=== PATIENT | male | born 1965 | race Caucasian/White ===

== ENCOUNTER → 2023-11-23 16:17 | Outpatient (BNVA) | payer MEDICAID, SELFPAY | PROVIDERS: Visit Provider Internal Medicine Cardiovascular Disease | DX: I49.8 Other specified cardiac arrhythmias (principal); R07.9 Chest pain, unspecified; R01.1 Cardiac murmur, unspecified; Z01.818 Encounter for other preprocedural examination; R00.2 Palpitations; Z87.891 Personal history of nicotine dependence | CPT/HCPCS: 93005; 99204 ==

== ENCOUNTER 2023-12-09 07:51 | Outpatient (CLI) | payer MEDICAID, SELFPAY ==
--- NOTE | 2023-12-09 08:00 | USCV_ITS ---
Cresencio Rubio Age: 57 Gender: M : 1965 Exam Date: 12/09/2023 08:17 Ordering Phys: Lorenzo Lorenzo MD ([email or web address]) Technologist: Exam Location: [facility] [place] Indication: Murmur BP: 119 / 79 HR: 50 Rhythm: Sinus Technical Quality: Adequate MEASUREMENTS (Male / Female) Normal Values 2D ECHO LVOT Diameter 2.3 cm LV Ejection Fraction MOD 4C 58.2 % LV Ejection Fraction MOD 2C 70.3 % LV Ejection Fraction 2C AL 70.7 % LA Diameter 4.3 cm RA Systolic Volume 4C AL 28.6 ml RA Systolic Volume 4C MOD 28.0 ml LA Sys Volume AL 58.8 cm cubed LA Sys Volume Index AL 29.0 cm cubed/m squared Aorta at Sinotubular Diameter 2.4 cm IVC Diameter 2.0 cm M-MODE LA Ao Ratio MM 1.7 AV Cusp Separation MM 2.3 cm DOPPLER AV Peak Velocity 136.0 cm/s LVOT Peak Velocity 106.0 cm/s AV Area Cont Eq vti 3.5 cm squared AV Area Cont Eq pk 3.1 cm squared MV Peak Velocity 117.0 cm/s MV Area PHT 2.9 cm squared Mitral E to A Ratio 0.9 TR Peak Velocity 238.0 cm/s TR Peak Gradient 22.7 mmHg TV Peak E Velocity 63.0 cm/s Right Atrial Pressure 3.0 mmHg Pulmonary Artery Systolic Pressu 25.7 mmHg PV Peak Velocity 116.5 cm/s FINDINGS Left Ventricle Normal left ventricular cavity size. Normal left ventricular systolic function. Left ventricular ejection fraction is estimated at 60 %. Grade I/IV diastolic dysfunction (abnormal relaxation filling pattern), normal to mildly elevated filling pressures. Right Ventricle The right ventricle is normal in size and function. Right Atrium Moderately increased right atrial size. Left Atrium Mildly increased left atrial size. Mitral Valve Moderately thickened mitral valve. There appeared to be mobile mass attached to mitral valve on the atrial side can be seen in different views cannot rule out vegetation in the absence of persistent infection and bacteremia could be rudimentary chordae, no mitral valve stenosis. Moderate mitral valve regurgitation. Aortic Valve Mild aortic valve calcification. No aortic valve stenosis. Trace aortic valve regurgitation. Tricuspid Valve Mild tricuspid valve regurgitation. Pulmonic Valve Structurally normal pulmonic valve without significant stenosis. There is no pulmonic regurgitation. Pericardium Normal pericardium without effusion. Aorta Normal ascending aorta dimension. IVC The inferior vena cava appears normal. CONCLUSIONS 1-Normal left ventricular cavity size. Normal left ventricular systolic function. Left ventricular ejection fraction is estimated at 60 %. Grade I/IV diastolic dysfunction (abnormal relaxation filling pattern), normal to mildly elevated filling pressures. 2-Moderately thickened mitral valve. There appeared to be mobile mass attached to mitral valve on the atrial side can be seen in different views cannot rule out vegetation in the absence of persistent infection and bacteremia could be rudimentary chordae, no mitral valve stenosis. Moderate mitral valve regurgitation. 3-Mild aortic valve calcification. No aortic valve stenosis. Trace aortic valve regurgitation. 4-Mild tricuspid valve regurgitation. 5-There is no pericardial effusion. 6-Pulmonary artery systolic pressure is within normal limits. 7-Right atrial pressure is around 5 mm of mercury. Lorenzo Lorenzo MD (Electronically Signed) Final Date: 09 December 2023 19:10 S
== END 2023-12-09 07:52 | disposition home or self-care (01) ==
LOC: RAD 07:51
PROVIDERS: Visit Provider Internal Medicine Cardiovascular Disease
DX: I50.30 Unspecified diastolic (congestive) heart failure (principal); I34.81 Nonrheumatic mitral (valve) annulus calcification; I34.0 Nonrheumatic mitral (valve) insufficiency
CPT/HCPCS: 93306

== ENCOUNTER 2024-04-27 10:51 | Day surgery (SDC) | payer MEDICARE, SELFPAY ==
--- NOTE | 2024-04-27 11:34 | ECG_ITS ---
[facility] Test Date: 2024-04-27 Pat Name: Cresencio Rubio Department: Room: Gender: Male Client Experience Consultant: : 1965 Requested By: Lorenzo Lorenzo Order Number: [id number] Reading MD: LORENZO LORENZO Measurements Intervals [place] Rate: 52 P: 263 MT: 158 QRS: -14 QRSD: 84 T: -30 QT: 441 QTc: 412 Interpretive Statements SINUS BRADYCARDIA POSSIBLE LEFT ATRIAL ENLARGEMENT [-0.1mV P-WAVE IN V1/V2] LOW QRS VOLTAGE IN EXTREMITY LEADS [QRS DEFLECTION < 0.5 mV IN LIMB LEADS] MODERATE ST DEPRESSION [0.05+ mV ST DEPRESSION] Compared to ECG 11/23/2023 16:22:02 Low QRS voltage now present ST (T wave) deviation now present Sinus rhythm no longer present Electronically Signed On 04-29-2024 21:12:00 ELECTROLYSIS INVESTIGATOR by LORENZO LORENZO [email or web address]
[2024-04-27 11:45] VITALS: BP 144/85; PULSE 50; RESP 16; TEMP 36.7; O2SAT 98
[2024-04-27] MEDS: sodium chloride 0.9% 500 ML 15 ML IV (12:10)
--- NOTE | 2024-04-27 12:24 | ANES.PREANE2 ---
Pre-Anesthetic Assessment Height/Weight: Height 5 ft 8 in Weight 190 lb Temp Pulse Resp BP Pulse Ox 98.0 F 50 L 16 144/85 98 04/27/24 11:45 04/27/24 11:45 04/27/24 11:45 04/27/24 11:45 04/27/24 11:45 Preop Diagnosis: Concern for mitral valve vegetation Operation Date: 04/27/24 12:30 Proposed Procedures p RANJAN(Not Applicable) - Lorenzo Lorenzo MD s Cardioversion(Not Applicable) - Lorenzo Lorenzo MD Was Beta Eliana taken within 24 hours: N/A Was Clonidine taken within 24 hours: N/A Last intake: Intake Last Liquid Date 04/26/24 Last Liquid Time 23:00 Last Solid Date 04/26/24 Last Solid Time 17:00 Social No alcohol and No tobacco Exam alert, oriented x 3, clear to auscultation bilaterally and regular rate & rhythm Airway Submandibular: within normal limits Cervical ROM: within normal limits Mallampati: Class II Dentition: full Anesthetic Plan ASA status: 2 Anesthesia: MAC Other: No prior issues with anesthesia NPO since yesterday Patient had a recent echo with concern of a mitral valve vegetation, here for follow-up Patient denies any lung problems but 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 METs greater than 4 Plan for MAC anesthetic Medications/Allergies Home Medications ?Medication ?Instructions ?Recorded ?Confirmed ?Last Taken ?Type magnesium oxide 400 mg PO DAILY #90 tabs 11/23/23 04/25/24 04/26/24 Rx telmisartan 80 1 tab PO DAILY 11/23/23 04/25/24 04/26/24 History mg-hydrochlorothiazide 12.5 mg tablet verapamil 240 mg 24 hr 240 mg PO DAILY 11/23/23 04/25/24 04/26/24 History capsule,extended release aspirin 81 mg tablet,delayed 81 mg PO DAILY 04/25/24 04/25/24 04/26/24 History release multivitamin 1 tab PO DAILY 04/25/24 04/25/24 04/26/24 History Allergies Allergy/AdvReac Type Severity Reaction Status Date / Time No Known Allergies Allergy Unverified 11/23/23 15:57 Current Medications Generic Name Dose Route Start Last Admin Trade Name Freq PRN Reason Stop Dose Admin Sodium Chloride 500 mls @ 15 mls/hr 04/27/24 11:15 04/27/24 12:10 Sodium Chloride 0.9% IV 04/28/24 11:14 15 mls/hr .Q24H PRN Administration COLONOSCOPY FLUIDS PFSH Anesthesia Medical History (Updated 11/23/23 @ 21:18 by Lorenzo Lorenzo MD) Palpitation Family History (Updated 11/23/23 @ 09:36 by Ludivina Molina LPN) Father Bladder cancer Hyperlipidemia Mother Hyperlipidemia Social History (Updated 11/23/23 @ 16:04 by Ludivina Molina LPN) Smoking and tobacco/nicotine status: former use of tobacco/nicotine Quit status (tobacco/nicotine): has quit using Year quit tobacco: 2023 Former quit date comment: smoked for 10 years 0.5 pack per day Alcohol intake: current Alcohol intake frequency: few times a week Alcohol type: beer Substance/Drug Use: never Data Anesthesia Cardiac Studies: Echocardiogram 12/09/23
--- NOTE | 2024-04-27 12:53 | USCV_ITS ---
Cresencio Rubio Age: 58 Gender: M : 1965 Exam Date: 04/27/2024 13:34 Ordering Phys: Lorenzo Lorenzo MD ([email or web address]) Technologist: Jimmy Mckinney Exam Location: [facility] [place] Indication: abnormal echo BP: / HR: Rhythm: Sinus Technical Quality: Adequate MEASUREMENTS (Male / Female) Normal Values Medications Patient given IV sedation by anesthesia service, for details please refer to the anesthesia report. Complications None. Proc. Components The patient was brought to the RANJAN examination room in a fasting state after obtaining an informed consent. The RANJAN probe was passed into the posterior pharynx , mid-esophagus, distal esophagus, and gastric fundus. RANJAN was performed at multiple levels. The patient tolerated the procedure well and there were no complications. FINDINGS Left Ventricle Normal left ventricular size, systolic function and wall thickness, with no regional wall motion abnormalities. Left ventricular ejection fraction is estimated at 60 %. Right Ventricle The right ventricle is normal in size and function. Right Atrium The right atrium is normal in size. Left Atrium The left atrium is normal in size. LA Appendage Normal flow velocities in the left atrial appendage. No thrombus visualized in the left atrial appendage. IA Septum Normal interatrial septum. No intracardiac shunt by agitated saline noted. Mitral Valve Mildly thickened mitral valve. Mild mitral valve prolapse. 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 No mitral valve stenosis. Moderate mitral valve regurgitation. Aortic Valve Mild aortic valve calcification. No aortic valve stenosis. Trace aortic valve regurgitation. Tricuspid Valve Trace tricuspid valve regurgitation. Pulmonic Valve Structurally normal pulmonic valve without significant stenosis. There is no pulmonic regurgitation. Pericardium Normal pericardium without effusion. Aorta Normal ascending aorta dimension. CONCLUSIONS Normal left ventricular size, systolic function and wall thickness, with no regional wall motion abnormalities. Left ventricular ejection fraction is estimated at 60 %. Mildly thickened mitral valve. Mild mitral valve prolapse. 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 No mitral valve stenosis. Moderate mitral valve regurgitation. Normal flow velocities in the left atrial appendage. No thrombus visualized in the left atrial appendage. Normal interatrial septum. No intracardiac shunt by agitated saline noted. There is no pericardial effusion. Lorenzo Lorenzo MD (Electronically Signed) Final Date: 28 April 2024 19:39 S
--- NOTE | 2024-04-27 13:06 | W.PM.OPSFHP ---
Same Day Surgery H&P Indication for Procedure/HPI DATE OF PROCEDURE: April 27, 2024 CHIEF COMPLAINT/INDICATIONFOR SURGICAL PROCEDURE: Mitral valve regurg with vegetation PREOP DIAGNOSIS: Concern for mitral valve vegetation PLANNED PROCEDURE: Operation Date: 04/27/24 12:30 Proposed Procedures p RANJAN(Not Applicable) - Lorenzo Lorenzo MD s Cardioversion(Not Applicable) - Lorenzo Lorenzo MD Patient. Male past medical history significant for hypertension hyperlipidemia worsening or shortness of breath noted to have mitral valve regurgitation/questionable vegetation l on 2D echo, it is the reason patient is here for transesophageal echocardiogram. All risk-benefit and alternative for the procedure has been explained to the patient. He would like to proceed with IT Medications/Allergies* Home Medications ?Medication ?Instructions ?Recorded ?Confirmed ?Type telmisartan 80 1 tab PO DAILY 11/23/23 04/25/24 History mg-hydrochlorothiazide 12.5 mg tablet verapamil 240 mg 24 hr 240 mg PO DAILY 11/23/23 04/25/24 History capsule,extended release aspirin 81 mg tablet,delayed 81 mg PO DAILY 04/25/24 04/25/24 History release multivitamin 1 tab PO DAILY 04/25/24 04/25/24 History Allergies/Adverse Reactions Allergy/AdvReac Type Severity Reaction Status Date / Time No Known Allergies Allergy Unverified 11/23/23 15:57 Current Medications: Generic Name Dose Route Start Last Admin Trade Name Freq PRN Reason Stop Dose Admin Sodium Chloride 500 mls @ 15 mls/hr 04/27/24 11:15 04/27/24 12:10 Sodium Chloride 0.9% IV 04/28/24 11:14 15 mls/hr .Q24H PRN Administration COLONOSCOPY FLUIDS Pertinent History/Comorbid Conditions* Medical History (Updated 11/23/23 @ 21:18 by Lorenzo Lorenzo MD) Palpitation Family History (Updated 11/23/23 @ 09:36 by Ludivina Molina LPN) Bladder cancer Father Hyperlipidemia Father Mother Social History Smoking and tobacco/nicotine status: former use of tobacco/nicotine Quit status (tobacco/nicotine): has quit using Year quit tobacco: 2023 Former quit date comment: smoked for 10 years 0.5 pack per day Alcohol intake: current Alcohol intake frequency: few times a week Alcohol type: beer Substance/Drug Use: never Pertinent Exam Findings alert, oriented x 3, clear to auscultation bilaterally, regular rate & rhythm and operative site marked Conscious Sedation Assessment PATIENT ASSESSED PRIOR TO SEDATION, WITH NO CHANGE NOTED: Yes Recommendations Surgery/Procedure today Coding Level of Care Code Acute Code for Chg Jamilah
[2024-04-27 14:05] VITALS: BP 104/67; PULSE 64; RESP 18; O2SAT 96
[2024-04-27 14:16] VITALS: BP 98/70; PULSE 61; RESP 18; O2SAT 95
[2024-04-27 14:39] VITALS: BP 121/80; PULSE 51; RESP 16; O2SAT 97
--- NOTE | 2024-04-27 14:46 | ANE.PACU2 ---
Inpatient post-anesthesia follow up: Airway intact: Yes Vital signs: Temperature 98.0 F Pulse Rate 51 Respiratory Rate 16 Blood Pressure 121/80 Pulse Oximetry 97 Oxygen Delivery Me thod Room Air Oxygen Flow Rate Fraction of Inspir ed Oxygen Hydration adequate: Yes Nausea and vomiting: No Pain level: 1 Mental status: Baseline
== END 2024-04-27 14:46 | disposition home or self-care (01) ==
PROVIDERS: Visit Provider Internal Medicine Cardiovascular Disease
PROC: (CPT 93312; principal; 2024-04-27 12:30)
DX: I34.0 Nonrheumatic mitral (valve) insufficiency (principal); I34.1 Nonrheumatic mitral (valve) prolapse; I70.0 Atherosclerosis of aorta; R00.1 Bradycardia, unspecified; R93.1 Abnormal findings on diagnostic imaging of heart and coronary circulation; I10 Essential (primary) hypertension; E78.5 Hyperlipidemia, unspecified; Z79.899 Other long term (current) drug therapy; Z79.82 Long term (current) use of aspirin; Z87.891 Personal history of nicotine dependence
CPT/HCPCS: 93005; 93312; 93320; 93325; J2704; J7040

== ENCOUNTER → 2024-04-30 13:50 | Outpatient (BNVA) | payer MEDICARE, SELFPAY | PROVIDERS: Visit Provider Internal Medicine Cardiovascular Disease | DX: Z53.9 Procedure and treatment not carried out, unspecified reason (principal) | CPT/HCPCS: 93229 ==

== ENCOUNTER 2024-11-07 02:34 | Emergency (ER) | payer MEDICARE, SELFPAY ==
--- OUTSIDE RECORDS SUMMARY | 2024-01-14 04:00 | XMS_ITS ---
Author Organization [facility] Address [address] [place] [address] Care Team Providers Care Drug Room Clerk Name Role Phone Don VENCES, Jessenia Primary Care Provider Gene Thompson Unavailable [phone] Migration, Provider Unavailable Unavailable REASON FOR VISIT EMR-Ozzie Encounters Encounter Location Date Provider Diagnosis Migrated_Facility 0 0 01/14/2024 Provider Migration Plan Of Treatment No Information Progress Notes * Robbie RUBIO ADOB:[birth year] (58 yo M)Acc No.[id number]:01/14/2024 Patient: Mary Kay Robbie PERRY :1965 A ge:58 Y S ex:Male Address:[address] [place] [address] [place] [address] Subjective: * Chief Complaints: * E MR-Ozzie * * Date:
--- OUTSIDE RECORDS SUMMARY | 2024-01-15 04:00 | XMS_ITS ---
Author Organization [facility] Address [address] [place] [address] Care Team Providers Care Balance Bridge Inspector Name Role Phone Don VENCES, Jessenia Primary Care Provider Gene Thompson Unavailable [phone] Migration, Provider Unavailable Unavailable Allergies Allergen (clinical drug ingredient) Drug/Non Drug Allergy documented on EMR Reaction Allergy Type Onset Date Status No Known Drug Allergy Unknown Drug Allergy Active REASON FOR VISIT EMR-Ozzie Encounters Encounter Location Date Provider Diagnosis Migrated_Facility 0 0 01/15/2024 Provider Migration Plan Of Treatment No Information Progress Notes * Robbie RUBIO ADOB:[birth year] (58 yo M)Acc No.[id number]:01/15/2024 Patient: Mary Kay PERRY Robbie A :1965 A ge:58 Y S ex:Male Address:[address] [place], [place] [address] [address] Subjective: * Chief Complaints: * E MR-Ozzie * Allergies: N o Known Drug Allergy: Allergy * * Date:
--- OUTSIDE RECORDS SUMMARY | 2024-08-09 06:00 | XMS_ITS ---
Author Organization [facility] Address [address] [place] [id number] Care Team Providers Care Mechanical Engineering Advisor Name Role Phone Jessenia Ochoa Primary Care Provider [phone] Allergies No Known Allergies REASON FOR VISIT Follow up chronic care, Jessica Sheth RN Medications Medication SIG (Take, Route, Frequency, Duration) Notes Start Date End Date Status PARoxetine HCl 10 MG 1 tablet in the mor ramon Orally Once a day; Duration: 30 days 04/11/2024 Not-Taking Potassium 99 MG 1 tablet Orally Once a day Active Aspirin 81 MG 1 tablet Orally Once a day Active Telmisartan-HCTZ 80-12.5 MG 1 tablet Orally Once a day; Duration: 90 days Active Magnesium 400 MG as directed Orally Active Verapamil HCl ER 120 MG 1 capsule Orally Once a day; Duration: 90 days Active Social History Tobacco Use: Social History Observation Description Date Details (start date - stop date) Former Smoker NA - NA Sex Assigned At : Social History Observation Description Sex Assigned At Male - Question Answer Notes Did you have a drink contain ing alcohol in the past year? Yes How often did you have a dri nk containing alcohol in the past year? Two to four times a month (2 points) How often did you have six o r more drinks on one occasion in the past year? Never (0 points) Points 2 Interpretation Negative CANDI Drug Questionnaire Question Answer Notes Have you used drugs other th an those for medical reasons in the past 12 months? No Do you smoke for age 13 and up Question Answer Notes Are you a: former smoker How long has it been since you last smoked? < 1 month Additional Findings: Tobacco Non-User Ex-light c igarette smoker (1-9/day) Smokeless Tobacco Question Answer Notes Tobacco use other than smoking No Have you ever had an STD Question Answer Notes Have you ever had an STD No Prevention Strategies Discussed Other Tobacco Control (Standard) Question Answer Notes Tobacco use: Former smoker How long has it been since you last smoked? 6-12 months AUDIT-C (Standard) Question Answer Notes Did you have a drink contain ing alcohol in the past year? Yes How often did you have six o r more drinks on one occasion in the past year? 2 to 4 times a month (2 points) How many drinks did you have on a typical day when you were drinking in the past year? 3 or 4 drinks (1 point) How often did you have a dri nk containing alcohol in the past year? 2 to 4 times a month (2 points) Points 5 Interpretation Positive Section Notes: Smoked episodically, often n on-smoker for 10 years at a time, less than 10 pack year hx total per pt report. Encounters Encounter Location Date Provider Diagnosis [address] [place] [address] [facility] [address] [place] [id number] 08/09/2024 Jessenia Ochoa Essential hypertension I10 Assessments Encounter Date Diagnosis (ICD Code) Assessment Notes Treatment Notes Treatment Clinical Notes Section Notes 08/09/2024 Essential hypertension (ICD-10 - I10) Plan Of Treatment Next Appt Details Provider Name:Jessenia christensen, 02/25/2025 08:40:00 AM, [address], [place], [place], [phone], Progress Notes * Mery TRACYOB:1965 (58 yo M)Acc No.[id number]:08/09/2024 FaceToFace Patient: Robbie DAVIS Provider: Tracy Ochoa MD Case Label: Date Of Injury: :1965 A ge:58 Y S ex:Male Date:08/09/2024 Address:[address] [place], [place] [id number] Patient's Default Facility:[address] [place] [address] Subjective: * Chief Complaints: * 1 . Follow up chronic care. 2. Jessica Sheth RN. * Medical History: E ssential HTN, dx around 1999, well controlled, Prior tobacco use, less than 10 pack yr hx. , palpitations, Dr Lorenzo, cardiology, [place], recommends OTC magnesium 400 mg for possible short bursts of tachycardia, Favorable lipid levels with high HDL, -Seeing Dr Grant and Dr Quigley for RUE pain, CTS R wrist, olecranon bursitis and lateral epicondylitis of R elbow., Complex regional pain syndrome type 1 of RUE, follows with Dr Grant, beginning OT Feb 2023, solar elastosis, one prior [place] tx with cryotherapy in 2018. Pt educated about sun protection, ETOH use above recommended levels, Angioedema, saw division chair in 2012, began jaswinder q am and clarinex q pm, Tinea versicolor, cleared in a few days with oral tablets several years ago with division chair. clears with ketoconazole, Punch bx x 2 on left upper back and cryo x 1 on right forearm, benign, normal carotid and ECHO 2010, old records, [place], Family hx of bladder cancer, normal UA here, anxiety, symptoms began 1999. Began treatment in 2002 with paxil. 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 * Surgical History: r ight carpel tunnel release- DR Grant 02-02-23. * Family History: F ather: alive, Bladder Cancer, treated successfully. Hx of tobacco use, diagnosed with Other malignant neoplasm of unspecified site, Hypertension, unspecified essential. M other: alive, tinea versicolor, diagnosed with Hypertension, unspecified essential. S iblings: alive, diagnosed with Hypertension, unspecified essential. C hildren: alive. 1 brother(s) , 2 sister(s) - healthy. 1 son(s) , 1 daughter(s) - healthy. . Sister, depression. Father and sister, anxiety. * Social History: T obacco Use 1: D o you smoke for age 13 and up A re you a: f ormer smoker, H ow long has it been since you last smoked? < 1 month, A dditional Findings: Tobacco Non-User E x-light cigarette smoker (1-9/day). E xposed to second hand smoke E xposed to second hand smoke N o. S mokeless Tobacco T obacco use other than smoking N o. T obacco Use: T obacco Control (Standard) T obacco use: F ormer smoker, H ow long has it been since you last smoked? 6 -12 months. H ealth Literacy Screening: H ow confident are you at filling out medical forms by yourself? 1 . Extremely Y es,?Date of Literacy Screening 0 11/27/2018, P t. Score 1 . S exual History: H ave you ever had an STD H ave you ever had an STD N o, P revention Strategies Discussed O ther. A dult Health Maintenance-: C olorectal Cancer Screening H ave you had a colorectal cancer screening? Y es, T ype of Screening: C olonoscopy, D ate: 0 12/17/2016, C olonoscopy Y es, C olonoscopy Test Date 0 12/17/2016, C olonscopy Repeat Date 2 . - C ompleted 0 11/03/2023. - D ental Visit Yearly N o, C ounseled Y es, D ate Counseled?11/03/2023. F garett Shot Y early N o, C ounseled Y es, D ate Counseled 0 11/03/2023. T etanus t etanus within the last 5 years Y es 09-27-2019.. Z alejandrina Vaccine age 50> C ompleted N o Pt declines, C ounseled Y es, D ate Counseled 0 08/18/2022. L earning Needs Assessment: L earn Best By V narendra Y es, W ritten N o, D emonstration N o. C ommunication Needs: C ommunication Needs D ifficulty Hearing N o, D ifficulty with Vision Y es reading glasses, D ifficulty with Reading or Writing N o. P re-visit Preparation: D id you do a team huddle D id you do a team huddle Y es. D id you have a E R Visit N o, H ospital Visit N o. R ecords received if transition of care? W ere records received if transition of care? Y es [facility]. F amily History: S ubstance Abuse I s there a family history of substance abuse N o. M ental illness I s there a family history of mental illness N o. D rug/Alcohol: N ADALI Drug Questionnaire H ave you used drugs other than those for medical reasons in the past 12 months? N o. A MIKALA-C (Standard) D id you have a drink containing alcohol in the past year? Y es, H ow often did you have six or more drinks on one occasion in the past year? 2 to 4 times a month (2 points), H ow many drinks did you have on a typical day when you were drinking in the past year? 3 or 4 drinks (1 point), H ow often did you have a drink containing alcohol in the past year? 2 to 4 times a month (2 points), P oints 5 , I nterpretation P ositive. - D id you have a drink containing alcohol in the past year??Yes, H ow often did you have a drink containing alcohol in the past year? T wo to four times a month (2 points), H ow often did you have six or more drinks on one occasion in the past year? N ever (0 points), P oints 2 , I nterpretation N egative. 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 clinical care coordinator N o, H ealth Care Proxy?No. S moked episodically, often non-smoker for 10 years at a time, less than 10 pack year hx total per pt report. * Medications: T aking Verapamil HCl ER 120 MG Capsule Extended Release 24 Hour 1 capsule Orally Once a day , Taking Telmisartan-HCTZ 80-12.5 MG Tablet 1 tablet Orally Once a day , Taking Aspirin 81 MG Tablet Delayed Release 1 tablet Orally Once a day , Taking Magnesium 400 MG Tablet as directed Orally , Taking Potassium 99 MG Tablet 1 tablet Orally Once a day , Not-Taking PARoxetine HCl 10 MG Tablet 1 tablet in the morning Orally Once a day * Allergies: N .K.D.A. Objective: * Vitals: Assessment: * Assessment: 1. E ssential hypertension - I10 Plan: * Treatment: Value Reference Range C HOL 251 H <200 - mg/dL * H DL 86.00 H 30.00-70.00 - mg/dL * L DL 149 H <130 - mg/dL * T RIG 81 <150 - mg/dL * Michelle Mcduffie, RT 08/21/2024 11:25:12 AM CDT >Jessenia Ochoa 08/21/2024 06:54:47 PM CDT >TC and bad chol still elevated, but much of the TC is the good chol, so he is still at below average risk for hardening of the arteries Jessica Sheth, RN 08/23/2024 01:43:56 PM CDT > Jessica Sheth, YUSEF 08/23/2024 01:45:54 PM CDT >notified pt of result/Dr. Ochoa comment, he voices understanding. ?LAB: SUMAYA-Shanna/Aurora/Kristen/Carmen/PG ONLY (Ordered for 08/21/2024) (Collection Date & Time - 08/21/2024 10:37 AM)?Normal* Value Reference Range e GFR 98.57 >60.00 - mL/min/1.73 m2 * G GARETT 97 70-110 - mg/dl * A LB 4.90 3.50-5.50 - g/dl * A LP 49 38-126 - U/L * A LT 23 0-50 - U/L * A ST 24 10-42 - U/L * B UN 16.00 7.00-25.00 - mg/dL * C A 9.5 8.4-10.4 - mg/dl * C L 103.0 98.0-110.0 - mmol/L * C O2 26.000 22.000-35.000 - mmol /L * C REAT 0.90 0.60-1.20 - mg/dL * K 4.1 3.5-5.1 - mmol/L * N A 134.0 L 135.0-146.0 - mmol/L * T BILI 0.600 <1.000 - mg/dL * T P 7.9 6.4-8.3 - g/dL * Michelle Mcduffie, RT 08/21/2024 11:25:20 AM CDT >Jessenia Ochoa P 08/21/2024 03:49:38 PM CDT >wnl Jessica Sheth, RN 08/23/2024 01:43:56 PM CDT > Jessica Sheth, YUSEF 08/23/2024 01:45:54 PM CDT >notified pt of result/Dr. Ochoa comment, he voices understanding. ?LAB: CBC, Diff, Automated (Ordered for 08/21/2024) (Collection Date & Time - 08/21/2024 10:37 AM)?Normal* Value Reference Range M ID-2 0.6 0.2-1.1 - K/ uL * G RAN 4.8 2.0-7.0 - K/uL * G RAN% 64.2 45.0-75.0 - % * H CT 48.7 38.5-50.0 - % * H GB 16.2 13.2-17.1 - g/dl * L YM-1 2.1 0.6-4.1 - 10^3 / uL * L YMPH% 28.1 10.0-58.8 - % * M CH 28.5 26.0-32.0 - pg * M CHC 33.2 31.0-36.0 - g/dl * M CV 85.6 80.0-97.0 - fl * M IDS% 7.7 1.0-10.0 - % * M PV 8.9 7.0-11.0 - fl * P LT 286 140-440 - K/dl * R BC 5.69 4.20-6.30 - M/uL * R DW 12.2 11.5-14.5 - % * W BC 7.5 4.0-10.9 - K/uL * Michelle Mcduffie, RT 08/21/2024 11:25:25 AM CDT >Jessenia Ochoa P 08/21/2024 11:38:58 AM CDT > - -reviewed in clinic with patient Care Plan: * Problems: * Billing Information: * Visit Code: * Procedure Codes: * Electronic signature of Valentine Ochoa MD on 11/07/2024 at 02:50 AM CDT Sign off status: Pending * Provider: Tracy Ochoa MD Date: 08/09/2024 Generated for Yaneli valiente/Daniela/Pelon on: 0 11/07/2024 02:50 AM CDT
--- OUTSIDE RECORDS SUMMARY | 2024-10-09 03:40 | XMS_ITS ---
Author Organization [facility] Address [address] [place] [phone] Care Team Providers Care Surgical Scrub Technician Name Role Phone Jessenia Ochoa Primary Care Provider REASON FOR VISIT Chronic Care, 6 month, [...] Male Encounters Encounter Location Date Provider Diagnosis [facility] [address] [place] [phone] 10/09/2024 Jessenia Ochoa Plan Of Treatment Next Appt Details Provider Name:Jessenia christensen, 02/25/2025 08:40:00 AM, [address], [place], [phone], Progress Notes * Varun TRACY:1965 (58 yo M)Acc No.[id number]:10/09/2024 FaceToFace Patient: Cresencio DAVIS Provider: Tracy Ochoa MD Case Label: Date Of Injury: :1965 A ge:58 Y S ex:Male Date:10/09/2024 Address:[address] [place], [place] [phone] Patient's Default Facility:[address] [place] [address] Subjective: * Chief Complaints: * 1 . [...] Date: 10/09/2024 Generated for Yaneli valiente/Daniela/Pelon on: 11/07/2024 02:50 AM CDT
[2024-11-07 02:46] VITALS: BP 160/96; PULSE 68; RESP 20; TEMP 36.9; O2SAT 94; BMI 27.6
--- NOTE | 2024-11-07 02:49 | ECG_ITS ---
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 Measurements Intervals [place] Rate: 64 P: 37 NE: 182 QRS: 34 QRSD: 92 T: 30 QT: 391 QTc: 405 Interpretive Statements SINUS RHYTHM POSSIBLE LEFT ATRIAL ENLARGEMENT [-0.1mV P-WAVE IN V1/V2] Compared to ECG 04/27/2024 11:34:50 Sinus bradycardia no longer present ST (T wave) deviation no longer present Electronically Signed On 11-10-2024 08:54:10 CDT by Fred Vidales M.D. [email or web address]
--- OUTSIDE RECORDS SUMMARY | 2024-11-07 02:50 | XMS_ITS | Patient Health Record ---
Author Organization [facility] Address [address] [place] [address] Care Team Providers Care Head Tennis Coach Name Role Phone Don VENCES, Jessenia Primary Care Provider Gene Thompson Unavailable [phone] Migration, Provider Unavailable Unavailable Allergies Allergen (clinical drug ingredient) Drug/Non Drug Allergy documented on EMR Reaction Allergy Type Onset Date Status No Known Drug Allergy Unknown Drug Allergy Active Reason For Referral No Information Medications Medication SIG (Take, Route, Frequency, Duration) Notes Start Date End Date Status Verapamil HCl Active Meloxicam 15 MG Tablet 1 tablet Orally O nce a day Not-Taking Micardis Active Gabapentin 300 MG Capsule 1 capsule Orally Once a day Not-Taking Social History Tobacco Use: Social History Observation Description Date Details (start date - stop date) Former Smoker NA - NA Social History Drugs/Alcohol: Social Info Question Answer Notes Alcohol Screen (Audit-C) Did you have a drink containing alcohol in the past year? Yes Points 0 Interpretation Negative Tobacco Use: Social Info Question Answer Notes xTobacco Use/Smoking Are you a former smoker Additional Details Category Social Info Options Details Drugs/Alcohol: Do you smoke marijuana? De nies Do you drink alcohol? Yes Problems Problem Type SNOMED Code ICD Code Onset Dates Problem Status W/U Status Risk Notes Problem Paresthesia (finding) (62316903) Paresthesia of skin (R20.2) Active confirmed Problem Carpal tunnel syndrome of right wrist (474072925167467) Carpal tunnel syndrome of right wrist (G56.01) Active confirmed Problem Lateral epicondylitis (048054794) Lateral epicondylitis of right elbow (M77.11) Active confirmed Problem Carpal tunnel syndrome (94928902) CTS (carpal tunnel syndrome) (G56.00) Active confirmed Problem Pain in limb (76147914) Pain of right hand (M79.641) Active confirmed Problem Inflammation of bursa of olecranon (665920981) Olecranon bursitis of right elbow (M70.21) Active confirmed Problem Complex regional pain syndrome type I of right upper limb (disorder) (669893141741938) Complex regional pain syndrome type 1 of right upper extremity (G90.511) Active confirmed Problem Postprocedural states (318095325) Status post carpal tunnel release (Z98.890) Active confirmed Encounters Encounter Location Date Provider Diagnosis Migrated_Facility 0 0 01/14/2024 Provider Migration Migrated_Facility 0 0 01/15/2024 Provider Migration Plan Of Treatment Pending Test Test Name Order Date Basic Metabolic Panel (BMP) 85511 2022 CBC Reflex Man Diff 88516, 28829 023 Electrocardiogram 12 Lead Tracing-91953 01/04/2023 Insurance Providers Payer Name Payer Address Payer Phone Subscriber Number Group Number Insured Name Patient Relationship to Insured Coverage Start Date Coverage End Date [place] Medicaid [address] [place] [address] [id number] Robbie Rubio Self - patient is the insured Medical (General) History Surgical History Surgery Date(Month/Year) Carpal tunnel release 02/02/2023 Hospitalization History Reason Date(Month/Year) Surgical Hx
--- OUTSIDE RECORDS SUMMARY | 2024-11-07 02:50 | XMS_ITS | Patient Health Record ---
Author Organization [address] [place] [address] e Cor Address [address] [place] [phone] Care Team Providers Care Service Representative Name Role Phone Jessenia Ochoa Primary Care Provider Allergies No Known Allergies Results Component Value Reference Range Notes CBC, Diff, Automated Reviewed date:08/21/2024 11:39:28 AM Interpretation:Normal Performing Lab: Notes/Report: Testing performed at the [address] [place] [address] location. CMP-[facility]/[place] [facility]/[place]/[facility] ONLY Reviewed date:08/23/2024 01:46:27 PM Interpretation:Normal Performing Lab: Notes/Report: Lipid Panel ([facility]/[place]/[facility] Only) Reviewed date:08/23/2024 01:46:27 PM Interpretation:OK for Patient Performing Lab: Notes/Report: Reason For Referral No Information Medications Medication SIG (Take, Route, Frequency, Duration) Notes Start Date End Date Status Magnesium 400 MG as directed Orally Active Potassium 99 MG 1 tablet Orally Once a day Active Aspirin 81 MG 1 tablet Orally Once a day Active PARoxetine HCl 10 MG 1 tablet in the morning Orally Once a day; Duration: 90 days 04/11/2024 Active Telmisartan-HCTZ 80-12.5 MG 1 tablet Orally Once a day; Duration: 90 days Active Verapamil HCl ER 120 MG 1 tablet Orally Once a day Active Ketoconazole 200 MG 1 tablet Orally for skin fungus Once a day; Duration: 10 days not taking 07/03/2020 Active Immunizations Vaccine Route Administration Date Status Comme [facility] Tdap 11-100 Yrs old-Private Stock ID Intradermal 09/28/2019 Administered Social History Tobacco Use: Social History Observation [...] pack year hx total per pt report. Smoked episodically, often n on-smoker for 10 years at a time, less than 10 pack year hx total per pt report. Smoked episodically, often n on-smoker for 10 years at a time, less than 10 pack year hx total per pt report. Smoked episodically, often n on-smoker for 10 years at a time, less than 10 pack year hx total per pt report. Smoked episodically, often n on-smoker for 10 years at a time, less than 10 pack year hx total per pt report. Smoked episodically, often n on-smoker for 10 years at a time, less than 10 pack year hx total per pt report. Smoked episodically, often n on-smoker for 10 years at a time, less than 10 pack year hx total per pt report. Smoked episodically, often n on-smoker for 10 years at a time, less than 10 pack year hx total per pt report. Smoked episodically, often n on-smoker for 10 years at a time, less than 10 pack year hx total per pt report. Smoked episodically, often n on-smoker for 10 years at a time, less than 10 pack year hx total per pt report. Smoked episodically, often n on-smoker for 10 years at a time, less than 10 pack year hx total per pt report. Smoked episodically, often n on-smoker for 10 years at a time, less than 10 pack year hx total per pt report. Smoked episodically, often n on-smoker for 10 years at a time, less than 10 pack year hx total per pt report. Smoked episodically, often n on-smoker for 10 years at a time, less than 10 pack year hx total per pt report. Smoked episodically, often n on-smoker for 10 years at a time, less than 10 pack year hx total per pt report. Smoked episodically, often n on-smoker for 10 years at a time, less than 10 pack year hx total per pt report. Smoked episodically, often n on-smoker for 10 years at a time, less than 10 pack year hx total per pt report. Smoked episodically, often n on-smoker for 10 years at a time, less than 10 pack year hx total per pt report. Smoked episodically, often n on-smoker for 10 years at a time, less than 10 pack year hx total per pt report. Smoked episodically, often n on-smoker for 10 years at a time, less than 10 pack year hx total per pt report. Smoked episodically, often n on-smoker for 10 years at a time, less than 10 pack year hx total per pt report. Problems Problem Type SNOMED Code ICD Code Onset Dates Problem Status W/U Status Risk Notes Problem Overweight (597602126) Overweight (E66.3) Active confirmed Problem Essential hypertension (28604207) Essential hypertension (I10) Active confirmed Problem Anxiety (41887554) Anxiety (F41.9) Active confirmed Problem Carpal tunnel syndrome (65962141) Right carpal tunnel syndrome (G56.01) Active confirmed Problem Angioedema (69988253) Angioedema, subsequent encounter (T78.3XXD) Active confirmed Problem Allergic rhinitis (64958692) Allergic rhinitis, unspecified seasonality, unspecified trigger (J30.9) Active confirmed Problem Chronic alcohol use (F10.90) Active confirmed Vital Signs Heart Rate 67 /min 08/21/2024 Temperature 97.0 degrees Fahrenheit 08/21/2024 Respiratory Rate 17 /min 08/21/2024 Oximetry 98 08/21/2024 Blood pressure diastolic 87 mm Hg 08/21/2024 Weight-kg 86.64 Kg 08/21/2024 Height 68.5 in 08/21/2024 Blood pressure systolic 123 mm Hg 08/21/2024 Weight 191.0 lbs 08/21/2024 BMI 28.62 kg/m2 08/21/2024 Encounters Encounter Location Date Provider Diagnosis [facility] [address] [place], [place] [id number] 04/02/2024 Jessenia Ochoa Essential hypertension I10 ; Allergic rhinitis, unspecified seasonality, unspecified trigger J30.9 ; Anxiety F41.9 ; Overweight E66.3 and Dietary counseling Z71.3 [facility] [address] [place], [place] [id number] 04/11/2024 Jessenia Ocoha Overweight E66.3 ; Anxiety F41.9 and Dietary counseling Z71.3 [facility] [address] [place], [place] [id number] 06/21/2024 Jessenia Ochoa Overweight E66.3 ; Essential hypertension I10 and Dietary counseling Z71.3 [facility] [address] [place], [place] [id number] 08/21/2024 Jessenia Ochoa Essential hypertension I10 ; Chronic alcohol use F10.90 ; Anxiety F41.9 and Tinea versicolor B36.0 [facility] [address] [place], [place] [id number] 02/23/2024 Jessenia Ochoa Essential hypertension I10 [facility] [address] [facility] [place] [id number] 03/06/2024 Jessenia Ochoa [facility] [address] [place], [place] [id number] 03/20/2024 Jessenia Ochoa [facility] [address] [place], [place] [id number] 03/23/2024 Jessenia Ochoa [facility] [address] [place], [place] [id number] 03/26/2024 Jessenia Ochoa [facility] [address] [place], [place] [id number] 06/20/2024 Jessenia Ochoa [facility] [address] [place], [place] [id number] 07/24/2024 Jessenia Ochoa [facility] [address] [place], [place] [id number] 07/30/2024 Jessenia Ochoa [facility] [address] [place], [place] [id number] 08/09/2024 Jessenia Ochoa Essential hypertension I10 [facility] [address] [place], [place] [id number] 10/17/2024 Jessenia Ochoa Essential hypertension I10 Assessments Encounter Date Diagnosis (ICD Code) Assessment Notes Treatment Notes Treatment Clinical Notes Section Notes 02/23/2024 Essential hypertension (ICD-10 - I10) 04/02/2024 Allergic rhinitis, unspecified seasonality, unspecified trigger (ICD-10 - J30.9) If you are allergic to house dust and mites, do not use home humidifiers. Your doctor can suggest ways you can control dust and mites. -Look for signs of cockroaches. Cockroaches cause allergic reactions. Use cockroach baits to get rid of them. Then, clean your home well. Cockroaches like areas where grocery bags, newspapers, empty bottles, or cardboard boxes are stored. Do not keep these inside your home, and keep trash and food containers sealed. Seal off any spots where cockroaches might enter your home. -If you are allergic to mold, get rid of furniture, rugs, and drapes that smell musty. Check for mold in the bathroom. -If you are allergic to outdoor pollen or mold spores, use air-conditioning. Change or clean all filters every month. Keep windows closed. -If you are allergic to pollen, stay inside when pollen counts are high. Use a vacuum apparatus cleaner with a HEPA filter or a double-thickness filter at least two times each week. -Stay inside when air pollution is bad. Avoid paint fumes, perfumes, and other strong odors. -Avoid conditions that make your allergies worse. Stay away from smoke. Do not smoke or let anyone else smoke in your house. Do not use fireplaces or wood-burning stoves. -If you are allergic to your pets, change the air filter in your furnace every month. Use high-efficiency filters. -If you are allergic to pet dander, keep pets outside or out of your bedroom. Old carpet and cloth furniture can hold a lot of animal dander. You may need to replace them. 04/11/2024 Overweight (ICD-10 - E66.3) 04/11/2024 Anxiety (ICD-10 - F41.9) Recognize and accept your anxiety. Then, when you are in a situation that makes you anxious, say to yourself, This is not an emergency. I feel uncomfortable, but I am not in danger. I can keep going even if I feel anxious. *Be kind to your body: *Relieve tension with exercise or a massage. *Get enough rest. *Avoid alcohol, caffeine, nicotine, and illegal drugs. They can increase your anxiety level and cause sleep problems. *Learn and do relaxation techniques. See below for more about these techniques. *Engage your mind. Get out and do something you enjoy. Go to a funny movie, or take a walk or hike. Plan your day. Having too much or too little to do can make you anxious. *Keep a record of your symptoms. Discuss your fears with a good friend or family member, or join a support group for people with similar problems. Talking to others sometimes relieves stress. *Get involved in social groups, or volunteer to help others. Being alone sometimes makes things seem worse than they are. *Get at least 30 minutes of exercise on most days of the week to relieve stress. Walking is a good choice. You also may want to do other activities, such as running, swimming, cycling, or playing tennis or team sports. Call 911 anytime you think you may need emergency care. For example, call if: --You feel you cannot stop from hurting yourself or someone else. Keep the numbers for these national suicide hotlines: 6-182-976-TALK ( ) and 2-525-IXSEITB ( ). If you or someone you know talks about suicide or feeling hopeless, get help right away. Watch closely for changes in your health, and be sure to contact your doctor if: --You have anxiety or fear that affects your life. --You have symptoms of anxiety that are new or different from those you had before. Electronic Prior Authorization was requested for PARoxetine HCl 10 MG Tablet. Provider can order medication once approval received. 04/02/2024 Essential hypertension (ICD-10 - I10) It's normal for blood pressure to go up and down throughout the day. But if it stays up, you have high blood pressure. Another name for high blood pressure is hypertension. For diagnosis, the top number may be 130 to 140 or higher. The bottom number may be 80 to 90 or higher. Despite what a lot of people think, high blood pressure usually doesn't cause headaches or make you feel dizzy or lightheaded. It usually has no symptoms. But it does increase your risk of stroke, heart attack, and other problems. You and your doctor will talk about your risks of these problems based on your blood pressure. Your doctor will give you a goal for your blood pressure. Your goal will be based on your health and your age. Lifestyle changes, such as eating healthy and being active, are always important to help lower blood pressure. You might also take medicine to reach your blood pressure goal. Follow-up care is a sims part of your treatment and safety. Be sure to make and go to all appointments, and call your doctor if you are having problems. It's also a good idea to know your test results and keep a list of the medicines you take. How can you care for yourself at home? Medical treatment If you stop taking your medicine, your blood pressure will go back up. You may take one or more types of medicine to lower your blood pressure. Be safe with medicines. Take your medicine exactly as prescribed. Call your doctor if you think you are having a problem with your medicine. Talk to your doctor before you start taking aspirin every day. Aspirin can help certain people lower their risk of a heart attack or stroke. But taking aspirin isn't right for everyone, because it can cause serious bleeding. See your doctor regularly. You may need to see the doctor more often at first or until your blood pressure comes down. If you are taking blood pressure medicine, talk to your doctor before you take decongestants or anti-inflammatory medicine, such as ibuprofen. Some of these medicines can raise blood pressure. Learn how to check your blood pressure at home. Lifestyle changes Stay at a healthy weight. This is especially important if you put on weight around the waist. Losing even 10 pounds can help you lower your blood pressure. If your doctor recommends it, get more exercise. Walking is a good choice. Bit by bit, increase the amount you walk every day. Try for at least 30 minutes on most days of the week. You also may want to swim, bike, or do other activities. Avoid or limit alcohol. Talk to your doctor about whether you can drink any alcohol. Try to limit how much sodium you eat to less than 2,300 milligrams (mg) a day. Your doctor may ask you to try to eat less than 1,500 mg a day. Eat plenty of fruits (such as bananas and oranges), vegetables, legumes, whole grains, and low-fat dairy products. Lower the amount of saturated fat in your diet. Saturated fat is found in animal products such as milk, cheese, and meat. Limiting these foods may help you lose weight and also lower your risk for heart disease. Do not smoke. Smoking increases your risk for heart attack and stroke. If you need help quitting, talk to your doctor about stop-smoking programs and medicines. These can increase your chances of quitting for good. When should you call for help? Call 911 anytime you think you may need emergency care. This may mean having symptoms that suggest that your blood pressure is causing a serious heart or blood vessel problem. Your blood pressure may be over 180/120. For example, call 911 if: You have symptoms of a heart attack. These may include: Chest pain or pressure, or a strange feeling in the chest. Sweating. Shortness of breath. Nausea or vomiting. Pain, pressure, or a strange feeling in the back, neck, jaw, or upper belly or in one or both shoulders or arms. Lightheadedness or sudden weakness. A fast or irregular heartbeat. You have symptoms of a stroke. These may include: Sudden numbness, tingling, weakness, or loss of movement in your face, arm, or leg, especially on only one side of your body. Sudden vision changes. Sudden trouble speaking. Sudden confusion or trouble understanding simple statements. Sudden problems with walking or balance. A sudden, severe headache that is different from past headaches. You have severe back or belly pain. Do not wait until your blood pressure comes down on its own. Get help right away. Call your doctor now or seek immediate care if: Your blood pressure is much higher than normal (such as 180/120 or higher), but you don't have symptoms. You think high blood pressure is causing symptoms, such as: Severe headache. Blurry vision. Watch closely for changes in your health, and be sure to contact your doctor if: Your blood pressure measures higher than your doctor recommends at least 2 times. That means the top number is higher or the bottom number is higher, or both. You think you may be having side effects from your blood pressure medicine. 06/21/2024 Overweight (ICD-10 - E66.3) 06/21/2024 Essential hypertension (ICD-10 - I10) It's normal for blood pressure to go up and down throughout the day. But if it stays up, you have high blood pressure. Another name for high blood pressure is hypertension. For diagnosis, the top number may be 130 to 140 or higher. The bottom number may be 80 to 90 or higher. Despite what a lot of people think, high blood pressure usually doesn't cause headaches or make you feel dizzy or lightheaded. It usually has no symptoms. But it does increase your risk of stroke, heart attack, and other problems. You and your doctor will talk about your risks of these problems based on your blood pressure. Your doctor will give you a goal for your blood pressure. Your goal will be based on your health and your age. Lifestyle changes, such as eating healthy and being active, are always important to help lower blood pressure. You might also take medicine to reach your blood pressure goal. Follow-up care is a sims part of your treatment and safety. Be sure to make and go to all appointments, and call your doctor if you are having problems. It's also a good idea to know your test results and keep a list of the medicines you take. How can you care for yourself at home? Medical treatment If you stop taking your medicine, your blood pressure will go back up. You may take one or more types of medicine to lower your blood pressure. Be safe with medicines. Take your medicine exactly as prescribed. Call your doctor if you think you are having a problem with your medicine. Talk to your doctor before you start taking aspirin every day. Aspirin can help certain people lower their risk of a heart attack or stroke. But taking aspirin isn't right for everyone, because it can cause serious bleeding. See your doctor regularly. You may need to see the doctor more often at first or until your blood pressure comes down. If you are taking blood pressure medicine, talk to your doctor before you take decongestants or anti-inflammatory medicine, such as ibuprofen. Some of these medicines can raise blood pressure. Learn how to check your blood pressure at home. Lifestyle changes Stay at a healthy weight. This is especially important if you put on weight around the waist. Losing even 10 pounds can help you lower your blood pressure. If your doctor recommends it, get more exercise. Walking is a good choice. Bit by bit, increase the amount you walk every day. Try for at least 30 minutes on most days of the week. You also may want to swim, bike, or do other activities. Avoid or limit alcohol. Talk to your doctor about whether you can drink any alcohol. Try to limit how much sodium you eat to less than 2,300 milligrams (mg) a day. Your doctor may ask you to try to eat less than 1,500 mg a day. Eat plenty of fruits (such as bananas and oranges), vegetables, legumes, whole grains, and low-fat dairy products. Lower the amount of saturated fat in your diet. Saturated fat is found in animal products such as milk, cheese, and meat. Limiting these foods may help you lose weight and also lower your risk for heart disease. Do not smoke. Smoking increases your risk for heart attack and stroke. If you need help quitting, talk to your doctor about stop-smoking programs and medicines. These can increase your chances of quitting for good. When should you call for help? Call 911 anytime you think you may need emergency care. This may mean having symptoms that suggest that your blood pressure is causing a serious heart or blood vessel problem. Your blood pressure may be over 180/120. For example, call 911 if: You have symptoms of a heart attack. These may include: Chest pain or pressure, or a strange feeling in the chest. Sweating. Shortness of breath. Nausea or vomiting. Pain, pressure, or a strange feeling in the back, neck, jaw, or upper belly or in one or both shoulders or arms. Lightheadedness or sudden weakness. A fast or irregular heartbeat. You have symptoms of a stroke. These may include: Sudden numbness, tingling, weakness, or loss of movement in your face, arm, or leg, especially on only one side of your body. Sudden vision changes. Sudden trouble speaking. Sudden confusion or trouble understanding simple statements. Sudden problems with walking or balance. A sudden, severe headache that is different from past headaches. You have severe back or belly pain. Do not wait until your blood pressure comes down on its own. Get help right away. Call your doctor now or seek immediate care if: Your blood pressure is much higher than normal (such as 180/120 or higher), but you don't have symptoms. You think high blood pressure is causing symptoms, such as: Severe headache. Blurry vision. Watch closely for changes in your health, and be sure to contact your doctor if: Your blood pressure measures higher than your doctor recommends at least 2 times. That means the top number is higher or the bottom number is higher, or both. You think you may be having side effects from your blood pressure medicine. 08/09/2024 Essential hypertension (ICD-10 - I10) 08/21/2024 Essential hypertension (ICD-10 - I10) It's normal for blood pressure to go up and down throughout the day. But if it stays up, you have high blood pressure. Another name for high blood pressure is hypertension. For diagnosis, the top number may be 130 to 140 or higher. The bottom number may be 80 to 90 or higher. Despite what a lot of people think, high blood pressure usually doesn't cause headaches or make you feel dizzy or lightheaded. It usually has no symptoms. But it does increase your risk of stroke, heart attack, and other problems. You and your doctor will talk about your risks of these problems based on your blood pressure. Your doctor will give you a goal for your blood pressure. Your goal will be based on your health and your age. Lifestyle changes, such as eating healthy and being active, are always important to help lower blood pressure. You might also take medicine to reach your blood pressure goal. Follow-up care is a sims part of your treatment and safety. Be sure to make and go to all appointments, and call your doctor if you are having problems. It's also a good idea to know your test results and keep a list of the medicines you take. How can you care for yourself at home? Medical treatment If you stop taking your medicine, your blood pressure will go back up. You may take one or more types of medicine to lower your blood pressure. Be safe with medicines. Take your medicine exactly as prescribed. Call your doctor if you think you are having a problem with your medicine. Talk to your doctor before you start taking aspirin every day. Aspirin can help certain people lower their risk of a heart attack or stroke. But taking aspirin isn't right for everyone, because it can cause serious bleeding. See your doctor regularly. You may need to see the doctor more often at first or until your blood pressure comes down. If you are taking blood pressure medicine, talk to your doctor before you take decongestants or anti-inflammatory medicine, such as ibuprofen. Some of these medicines can raise blood pressure. Learn how to check your blood pressure at home. Lifestyle changes Stay at a healthy weight. This is especially important if you put on weight around the waist. Losing even 10 pounds can help you lower your blood pressure. If your doctor recommends it, get more exercise. Walking is a good choice. Bit by bit, increase the amount you walk every day. Try for at least 30 minutes on most days of the week. You also may want to swim, bike, or do other activities. Avoid or limit alcohol. Talk to your doctor about whether you can drink any alcohol. Try to limit how much sodium you eat to less than 2,300 milligrams (mg) a day. Your doctor may ask you to try to eat less than 1,500 mg a day. Eat plenty of fruits (such as bananas and oranges), vegetables, legumes, whole grains, and low-fat dairy products. Lower the amount of saturated fat in your diet. Saturated fat is found in animal products such as milk, cheese, and meat. Limiting these foods may help you lose weight and also lower your risk for heart disease. Do not smoke. Smoking increases your risk for heart attack and stroke. If you need help quitting, talk to your doctor about stop-smoking programs and medicines. These can increase your chances of quitting for good. When should you call for help? Call 911 anytime you think you may need emergency care. This may mean having symptoms that suggest that your blood pressure is causing a serious heart or blood vessel problem. Your blood pressure may be over 180/120. For example, call 911 if: You have symptoms of a heart attack. These may include: Chest pain or pressure, or a strange feeling in the chest. Sweating. Shortness of breath. Nausea or vomiting. Pain, pressure, or a strange feeling in the back, neck, jaw, or upper belly or in one or both shoulders or arms. Lightheadedness or sudden weakness. A fast or irregular heartbeat. You have symptoms of a stroke. These may include: Sudden numbness, tingling, weakness, or loss of movement in your face, arm, or leg, especially on only one side of your body. Sudden vision changes. Sudden trouble speaking. Sudden confusion or trouble understanding simple statements. Sudden problems with walking or balance. A sudden, severe headache that is different from past headaches. You have severe back or belly pain. Do not wait until your blood pressure comes down on its own. Get help right away. Call your doctor now or seek immediate care if: Your blood pressure is much higher than normal (such as 180/120 or higher), but you don't have symptoms. You think high blood pressure is causing symptoms, such as: Severe headache. Blurry vision. Watch closely for changes in your health, and be sure to contact your doctor if: Your blood pressure measures higher than your doctor recommends at least 2 times. That means the top number is higher or the bottom number is higher, or both. You think you may be having side effects from your blood pressure medicine. 10/17/2024 Essential hypertension (ICD-10 - I10) 08/21/2024 Chronic alcohol use (ICD-10 - F10.90) Substance use disorder means that a person uses substances even though it causes harm to themself or others. This disorder can range from mild to severe. It can develop from the use of almost any type of substance. This includes: Alcohol.Marijuana and other drugs.Prescription medicines.Over-the- counter medicines.Could you have substance use disorder?If there's a chance you may have substance use disorder, it's important to find out. Ask yourself the following questions. You may have substance use disorder if your answer is yes to two or more questions, and these symptoms cause you harm or distress. Do you use larger amounts of the substance than you ever meant to? Or have you been using it for a longer time than you ever meant to?Are you not able to cut down or control your use? Or do you constantly wish you could cut down?Do you spend a lot of time getting or using the substance or recovering from the effects?Do you have strong cravings for the substance?Do you find that you can no longer do your main jobs at work, at school, or at home?Do you keep using, even though your substance use hurts your relationships?Have you stopped doing important activities because of your substance use?Do you use substances in situations where doing so is dangerous?Do you keep using the substance even though you know it's causing health problems?Do you need more and more of the substance to get the same effect, or do you get less effect from the same amount over time? This is called tolerance.Do you have uncomfortable symptoms when you stop using the substance or use less (withdrawal)?Substa nce use disorder can range from mild to severe. The more signs of this disorder you have, the more severe it may be. Do you think you might have substance use disorder? If you do, being aware of it is an important first step. Many people have overcome this disorder. And most of them started by reaching out to others, like caring friends or family, their doctor, or a support group. How is substance use disorder treated?You and your doctor can decide what type of treatment might help you. If you are physically dependent on the substance, you may need to stay in a hospital at first. There you can be treated for withdrawal symptoms. Medicines are often used to help control cravings, ease withdrawal symptoms, and prevent relapse. One of the goals of treatment is to help you reduce problems associated with substance use. This may include getting used to life without the substance. Counseling can help you prepare for people or situations that might tempt you to start using again. You can practice these skills through one-on-one counseling, family therapy, or group therapy. Therapy may be part of inpatient treatment, where you stay in a treatment center. Or it may be part of outpatient treatment. This lets you fit therapy around your job or other duties. You might talk to your doctor or do an online search for local treatment programs. Another goal of treatment is to help you find ongoing support for your sober life. Many people find support by going to group meetings. Examples include Alcoholics Anonymous, Narcotics Anonymous, or SMART Recovery. This type of support can help you feel less alone and more motivated to stay sober. Or you might tell a friend or loved one that you need help. Follow-up care is a sims part of your treatment and safety. Be sure to make and go to all appointments, and call your doctor if you are having problems. It's also a good idea to know your test results and keep a list of the medicines you take. 06/21/2024 Dietary counseling (ICD-10 - Z71.3) The following information is provided to help patients understand the role BMI, nutrition, and physical activity play in a patient's overall health. Please review the information available in these links. ADULT BMI: https://www.cdc.gov /healthyweight/asse ssing/bmi/adult_bmi /english_bmi_calcul ator/bmi_calculator .html DIETARY GUIDELINES: https://www.dietary guidelines.gov/site s/default/files/03-23/Dietary_Guidel ines_for_Americans- 2019-... PHYSICAL ACTIVITIES GUIDELINES: https://www.cdc.gov /healthyweight/phys ical_activity/index .html 04/02/2024 Anxiety (ICD-10 - F41.9) Recognize and accept your anxiety. Then, when you are in a situation that makes you anxious, say to yourself, This is not an emergency. I feel uncomfortable, but I am not in danger. I can keep going even if I feel anxious. *Be kind to your body: *Relieve tension with exercise or a massage. *Get enough rest. *Avoid alcohol, caffeine, nicotine, and illegal drugs. They can increase your anxiety level and cause sleep problems. *Learn and do relaxation techniques. See below for more about these techniques. *Engage your mind. Get out and do something you enjoy. Go to a funny movie, or take a walk or hike. Plan your day. Having too much or too little to do can make you anxious. *Keep a record of your symptoms. Discuss your fears with a good friend or family member, or join a support group for people with similar problems. Talking to others sometimes relieves stress. *Get involved in social groups, or volunteer to help others. Being alone sometimes makes things seem worse than they are. *Get at least 30 minutes of exercise on most days of the week to relieve stress. Walking is a good choice. You also may want to do other activities, such as running, swimming, cycling, or playing tennis or team sports. Call 911 anytime you think you may need emergency care. For example, call if: --You feel you cannot stop from hurting yourself or someone else. Keep the numbers for these national suicide hotlines: 9-139-107-TALK ( ) and 2-995-ONCAFFC ( ). If you or someone you know talks about suicide or feeling hopeless, get help right away. Watch closely for changes in your health, and be sure to contact your doctor if: --You have anxiety or fear that affects your life. --You have symptoms of anxiety that are new or different from those you had before. 04/11/2024 Dietary counseling (ICD-10 - Z71.3) The following information is provided to help patients understand the role BMI, nutrition, and physical activity play in a patient's overall health. Please review the information available in these links. ADULT BMI: https://www.cdc.gov /healthyweight/asse ssing/bmi/adult_bmi /english_bmi_calcul ator/bmi_calculator .html DIETARY GUIDELINES: https://www.dietary guidelines.gov/site s/default/files/03-23/Dietary_Guidel ines_for_Americans- 2020-... PHYSICAL ACTIVITIES GUIDELINES: https://www.cdc.gov /healthyweight/phys ical_activity/index .html 04/02/2024 Overweight (ICD-10 - E66.3) 08/21/2024 Anxiety (ICD-10 - F41.9) Recognize and accept your anxiety. Then, when you are in a situation that makes you anxious, say to yourself, This is not an emergency. I feel uncomfortable, but I am not in danger. I can keep going even if I feel anxious. *Be kind to your body: *Relieve tension with exercise or a massage. *Get enough rest. *Avoid alcohol, caffeine, nicotine, and illegal drugs. They can increase your anxiety level and cause sleep problems. *Learn and do relaxation techniques. See below for more about these techniques. *Engage your mind. Get out and do something you enjoy. Go to a funny movie, or take a walk or hike. Plan your day. Having too much or too little to do can make you anxious. *Keep a record of your symptoms. Discuss your fears with a good friend or family member, or join a support group for people with similar problems. Talking to others sometimes relieves stress. *Get involved in social groups, or volunteer to help others. Being alone sometimes makes things seem worse than they are. *Get at least 30 minutes of exercise on most days of the week to relieve stress. Walking is a good choice. You also may want to do other activities, such as running, swimming, cycling, or playing tennis or team sports. Call 911 anytime you think you may need emergency care. For example, call if: - You feel you cannot stop from hurting yourself or someone else. Keep the numbers for these national suicide hotlines: 4-780-346-TALK ( ) and 7-307-YZYNIKE ( ). If you or someone you know talks about suicide or feeling hopeless, get help right away. Watch closely for changes in your health, and be sure to contact your doctor if: - You have anxiety or fear that affects your life. - You have symptoms of anxiety that are new or different from those you had before. 08/21/2024 Tinea versicolor (ICD-10 - B36.0) Tinea versicolor is a skin infection. It causes many small spots, usually on the parts of the upper body like the chest and neck. The spots may form patches that have fine scales. The spots and patches may be hydrotel operator or darker than the skin around them. The fungus that causes tinea versicolor normally lives on your skin. Sometimes it can cause a rash. This happens more often where it's hot and humid. Having an impaired immune system may increase your chance of getting this rash. Some people, especially teens and young adults, are more likely to get tinea versicolor. Tinea versicolor doesn't spread from person to person. You can treat tinea versicolor with cream, ointment, or shampoo. You may need pills if the spots cover a lot of your body. Treatment kills the fungus quickly. Your skin, though, may not return to its normal color for months after treatment. Follow-up care is a sims part of your treatment and safety. Be sure to make and go to all appointments, and call your doctor if you are having problems. It's also a good idea to know your test results and keep a list of the medicines you take. How can you care for yourself at home?Follow the directions for use of creams, shampoos, or solutions. You will probably need to use them for 1 to 2 weeks. If your skin gets irritated, stop using the product, and call your doctor.Dry off well after bathing. Keep your skin dry.If the rash keeps coming back, you may want to use a cream, shampoo, or solution one time a month. Your doctor may prescribe pills to prevent the spots from returning.Watch closely for changes in your health, and be sure to contact your doctor if: Your rash gets worse. 04/02/2024 Dietary counseling (ICD-10 - Z71.3) The following information is provided to help patients understand the role BMI, nutrition, and physical activity play in a patient's overall health. Please review the information available in these links. ADULT BMI: https://www.cdc.gov /healthyweight/asse ssing/bmi/adult_bmi /english_bmi_calcul ator/bmi_calculator .html DIETARY GUIDELINES: https://www.dietary guidelines.gov/site s/default/files/03-23/Dietary_Guidel ines_for_Americans- 2020-... PHYSICAL ACTIVITIES GUIDELINES: https://www.cdc.gov /healthyweight/phys ical_activity/index .html 04/02/2024 Other Please move wit h your normal chores and activities or exercise vigorously for at least 150 minutes a week. This can be walking, biking, swimming or other sports activities that you enjoy. Also add at least 2 exercise sessions a week for strength and balance training such as weight lifting, resistance bands, martial arts, yoga, cinthya chi or other exercise to improve your overall health and reduce your future risk of injury., Fluticasone Metered Dose Nasal Wendel (FLUTICASONE SPRAY - NASAL) material was printed, Azelastine Ophthalmic Solution (AZELASTINE DROPS - OPHTHALMIC) material was printed 04/11/2024 Other Panic Attacks: Care Instructions material was printed, Generalized Anxiety Disorder: Care Instructions material was printed, Learning About Generalized Anxiety Disorder material was printed 08/21/2024 Other Please move wit h your normal chores and activities or exercise vigorously for at least 150 minutes a week. This can be walking, biking, swimming or other sports activities that you enjoy. Also add at least 2 exercise sessions a week for strength and balance training such as weight lifting, resistance bands, martial arts, yoga, cinthya chi or other exercise to improve your overall health and reduce your future risk of injury. Plan Of Treatment Next Appt Details Provider Name:Jessenia christensen, 02/25/2025 08:40:00 AM, [address], [place], [id number], Insurance Providers Payer Name Payer Address Payer Phone Subscriber Number Group Number Insured Name Patient Relationship to Insured Coverage Start Date Coverage End Date [facility] [address] [address] [place] [phone] [id number] Creesncio Rubio Self - patient is the insured Medical (General) History Medical History History ICD Code Essential HTN, dx around 1999, well cont rolled Prior tobacco use, less than 10 pack yr hx. palpitations, Dr Lorenzo, [facility], recommends OTC magnesium 400 mg for possible short bursts of tachycardia Favorable lipid levels with high HDL -Seeing Dr Grant and Dr Sundeep brar for RUE pain, CTS R wrist, olecranon bursitis and lateral epicondylitis of R elbow. Complex regional pain syndro me type 1 of RUE, follows with Dr Grant, beginning OT Feb 2023 solar elastosis, one prior A K tx with cryotherapy in 2018. Pt educated about sun protection ETOH use above recommended levels angioedema, saw production clerk in 2012, b mya jaswinder q am and clarinex q pm tinea versicolor, cleared in a few days with oral tablets several years ago with production clerk. clears with ketoconazole punch bx x 2 on left upper back and cryo x 1 on right forearm, benign normal carotid and ECHO 2010, old record s, [place] Family hx of bladder cancer, normal UA h ere anxiety, symptoms began 1999 . Began treatment in 2002 with paxil. Worked well, but caused some SE. 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
[2024-11-07 03:00] VITALS: BP 160/96; PULSE 66; RESP 18; O2SAT 95
--- NOTE | 2024-11-07 03:01 | XRR_ITS ---
PROCEDURE INFORMATION: Exam: XR Chest Exam date and time: 11/07/2024 3:03 AM Age: 58 years old Clinical indication: Dyspnea; Additional info: SOB TECHNIQUE: Imaging protocol: Radiologic exam of the chest. Views: Portable upright AP chest x-ray, 1 view. COMPARISON: No relevant prior studies available. FINDINGS: Tubes, catheters and devices: A couple monitor leads project over the chest. Lungs: No significant or acute findings. No consolidation. Pleural spaces: No significant costophrenic angle blunting. No pneumothorax. Heart/Mediastinum: Heart size is normal. Bones/joints: No acute osseous abnormality. XR/XR chest 1V portable [id number] IMPRESSION: No acute abnormality demonstrated.
--- NOTE | 2024-11-07 03:02 | W.ED.SOB ---
HPI - SOB/Dyspnea General: Chief Complaint: Shortness of Breath/Dyspnea Stated Complaint: SOB, BP is high Time Seen by Provider: 11/07/24 02:54 History of Present Illness: HPI Narrative: Patient comes in with shortness of breath. States that for the past few weeks he has had episodes where he gets short of breath and coughs up white sputum. Denies fever. Denies chest pain. States that tonight the episode was worse than normal and he felt like he could not catch his breath. Denies chest pain. He does have a history of high blood pressure. Physical exam at this time is unremarkable. Will check labs, EKG, give him 80 mg of IV Solu-Medrol, and reassess. Differential diagnosis: Acute ACS, acute pneumonia, acute mucous plug, acute new onset COPD, acute allergy Related Data Home Medications ?Medication ?Instructions ?Recorded ?Confirmed telmisartan 80 1 tab PO DAILY 11/23/23 04/25/24 mg-hydrochlorothiazide 12.5 mg tablet aspirin 81 mg tablet,delayed 81 mg PO DAILY 04/25/24 04/25/24 release multivitamin 1 tab PO DAILY 04/25/24 04/25/24 Previous Rx's ?Medication ?Instructions ?Recorded magnesium oxide 400 mg PO DAILY #90 tabs 11/23/23 verapamil 120 mg 24 hr 120 mg PO DAILY #90 caps 04/27/24 capsule,extended release prednisone 20 mg tablet 40 mg (2 x 20 mg) PO DAILY 4 days 11/07/24 #8 tabs Allergies Allergy/AdvReac Type Severity Reaction Status Date / Time No Known Allergies Allergy Unverified 11/23/23 15:57 Review of Systems Resp: Reports: dyspnea [facility] ED PFSH: Medical History (Updated 11/07/24 @ 04:21 by Tre Hadley MD) Palpitation Family History (Updated 11/23/23 @ 09:36 by Ludivina Molina LPN) Father Bladder cancer Hyperlipidemia Mother Hyperlipidemia Social History (Updated 11/23/23 @ 16:04 by Ludivina Molina LPN) Smoking and tobacco/nicotine status: former use of tobacco/nicotine Quit status (tobacco/nicotine): has quit using Year quit tobacco: 2023 Former quit date comment: smoked for 10 years 0.5 pack per day Alcohol intake: current Alcohol intake frequency: few times a week Alcohol type: beer Substance/Drug Use: never Physical Exam Const: COMMON NORMALS: no acute distress, patient oriented x3, healthy appearing and alert HENMT: COMMON NORMALS: normocephalic and atraumatic HEAD & SCALP: normocephalic and atraumatic Neck/C-Spine: COMMON NORMALS: full ROM and supple Resp: COMMON NORMALS: normal respiratory effort, No retractions and No use of accessory muscles Cardio: COMMON NORMALS: regular rate and regular rhythm RATE: regular rate RHYTHM: regular rhythm Extremity: COMMON NORMALS: normal to inspection and full ROM Neuro: COMMON NORMALS: patient oriented x3 SENSORIUM/ORIENTATION: Yes alert Psych: COMMON NORMALS: mental status grossly normal and cooperative Course Vital Signs: Vital signs: Vital Signs Temperature 98.4 F 11/07/24 02:46 Pulse Rate 57 L 11/07/24 04:00 Respiratory Rate 14 11/07/24 04:00 Blood Pressure 126/90 11/07/24 04:00 Pulse Oximetry 92 11/07/24 04:00 Oxygen Delivery Me thod Room Air 11/07/24 03:00 MDM - SOB/Dyspnea Medical Decision Making On reassessment patient close. His lungs are clear to auscultation. Will continue steroids for the next 4 days. Will encourage him to follow-up with his primary care physician. Will discharge at this time with precautions to return for worsening or changing symptoms. Lab Data 11/07/24 03:14 11/07/24 03:14 Labs/Radiology: Radiology Impressions Chest X-Ray 11/07/24 03:01 IMPRESSION: No acute abnormality demonstrated. Laboratory Results WBC 8.17 10^3/uL (3.29-11.43) 11/07/24 03:14 RBC 5.34 10^6/uL (3.85-5.65) 11/07/24 03:14 Hgb 15.60 g/dL (11.27-16.99) 11/07/24 03:14 Hct 45.0 % (37-53) 11/07/24 03:14 MCV 84.3 fl (82-101) 11/07/24 03:14 MCH 29.2 pg (27-33) 11/07/24 03:14 MCHC 34.7 g/dL (30-55) 11/07/24 03:14 RDW 12.5 % (12.1-15.1) 11/07/24 03:14 Plt Count 249 10^3/cmm (157-399) 11/07/24 03:14 MPV 10.2 fL (7.4-10.4) 11/07/24 03:14 Neut % (Auto) 59.1 % 11/07/24 03:14 Lymph % (Auto) 27.4 % 11/07/24 03:14 [place] % (Auto) 7.8 % 11/07/24 03:14 Eos % (Auto) 4.3 % 11/07/24 03:14 Baso % (Auto) 1.0 % 11/07/24 03:14 Neut # (Auto) 4.83 10^3/uL (1.8-7.7) 11/07/24 03:14 Lymph # (Auto) 2.2 10^3/uL (0.8-4.8) 11/07/24 03:14 [place] # (Auto) 0.6 10^3/uL (0.2-0.9) 11/07/24 03:14 Eos # (Auto) 0.4 10^3/uL (0.0-0.8) 11/07/24 03:14 Baso # (Auto) 0.1 10^3/uL (0.0-0.1) 11/07/24 03:14 Nucleated RBC % (auto) 0 % 11/07/24 03:14 Nucleated RBCs # 0.0 /100WBC 11/07/24 03:14 Potassium 3.8 mmol/L (3.5-5.1) 11/07/24 03:14 Chloride 98 mmol/L (98-107) 11/07/24 03:14 Carbon Dioxide 22 mmol/L (22-29) 11/07/24 03:14 Anion Gap 16.8 (5-19) 11/07/24 03:14 BUN 15 mg/dL (6-20) 11/07/24 03:14 Creatinine 0.9 mg/dL (0.7-1.2) 11/07/24 03:14 Glucose 105 mg/dL (65-115) 11/07/24 03:14 Calcium 9.4 mg/dL (8.5-10.5) 11/07/24 03:14 Troponin T Baseline < 6 ng/L (0-15) 11/07/24 03:14 NT-Pro-B Natriuret Pep < 36 pg/mL (0-125) 11/07/24 03:14 All radiology interpretation(s) finalized by discharge Discharge Plan Discharge Patient Disposition: Home Clinical Impression: Cough, Shortness of breath Condition: Stable Prescriptions: New prednisone 20 mg tablet 40 mg PO DAILY 4 Days Qty: 8 0RF No Action telmisartan-hydrochlorothiazid 80-12.5 mg tablet 1 tab PO DAILY magnesium oxide 400 mg magnesium tablet 400 mg PO DAILY Qty: 90 3RF multivitamin Tablet 1 tab PO DAILY aspirin 81 mg Tablet,Delayed Release (Dr/Ec) 81 mg PO DAILY verapamil 120 mg capsule,ext rel. pellets 24 hr 120 mg PO DAILY Qty: 90 1RF Discharge Orders: Discharge ED (Routine); Ordered 11/07/24 Ordered By: Tre Hadley Referrals: Jessenia Ochoa MD [Primary Care Provider, Family Practice] Patient Instructions: Patient Portal & Wojciech Instructions Print Language: Tunisian Coding Level of Care Code ED Hogshead Opener for Katty Askew
[2024-11-07] MEDS: methylPREDNISolone sod succ 125 mg/2 mL INJ 80 MG IV (03:13)
[2024-11-07 03:30] VITALS: BP 135/88; PULSE 62; RESP 12; O2SAT 94
[2024-11-07 03:34] LABS: Hematocrit 45.0 % (37-53); Hemoglobin 15.60 g/dL (11.27-16.99); Mean Corpuscular HGB Conc 34.7 g/dL (30-55); Mean Corpuscular Hemoglobin 29.2 pg (27-33); Mean Corpuscular Volume 84.3 fl (82-101); Nucleated Red Blood Cells % 0 %; Platelet Count 249 10^3/cmm (157-399); Red Blood Count 5.34 10^6/uL (3.85-5.65); White Blood Count 8.17 10^3/uL (3.29-11.43)
[2024-11-07 03:54] LABS: Troponin(5th) Baseline < 6 ng/L (0-15)
[2024-11-07 04:00] VITALS: BP 126/90; PULSE 57; RESP 14; O2SAT 92
[2024-11-07 04:18] LABS: Anion Gap 16.8 (5-19); Blood Urea Nitrogen 15 mg/dL (6-20); Calcium 9.4 mg/dL (8.5-10.5); Carbon Dioxide 22 mmol/L (22-29); Chloride 98 mmol/L (98-107); Creatinine Clr Calc Pharmacy 93.6050; Glucose 105 mg/dL (65-115); NT Pro B Type Natriuretic Pept < 36 pg/mL (0-125); Osmolality Calculated 277 mOsm/kg (285-295); Potassium 3.8 mmol/L (3.5-5.1); Sodium 133 mmol/L (136-145)
[2024-11-07 04:33] VITALS: BP 126/90; PULSE 62; O2SAT 92
== END 2024-11-07 04:35 | disposition home or self-care (01) ==
PROVIDERS: Emergency Provider Emergency Medicine; PCP Family Medicine
DX: R05.9 Cough, unspecified (principal); R06.02 Shortness of breath; Z79.82 Long term (current) use of aspirin; Z87.891 Personal history of nicotine dependence
CPT/HCPCS: 71045; 80048; 83880; 84484; 85025; 93005; 96374; 99285; J2919

== ENCOUNTER 2024-11-12 05:40 | Emergency (ER) | payer MEDICARE, SELFPAY ==
--- OUTSIDE RECORDS SUMMARY | 2024-01-14 04:00 | XMS_ITS ---
Author Organization [facility] Address [address] [place] [address] Care Team Providers Care Senior Sustainability Consultant Name Role Phone Don VENCES, Jessenia Primary Care Provider Gene Thompson Unavailable [phone] Migration, Provider Unavailable Unavailable REASON FOR VISIT EMR-Ozzie Encounters Encounter Location Date Provider Diagnosis Migrated_Facility 0 0 01/14/2024 Provider Migration Plan Of Treatment No Information Progress Notes * Robbie RUBIO ADOB:[birth year] (58 yo M)Acc No.[id number]:01/14/2024 Patient: Mary Kay Robbie PERRY :1965 A ge:58 Y S ex:Male Address:[address] [place] [address] [place] [address] Subjective: * Chief Complaints: * E MR-Ozzie * * Date:
--- OUTSIDE RECORDS SUMMARY | 2024-01-15 04:00 | XMS_ITS ---
Author Organization [facility] Address [address] [place] [address] Care Team Providers Care Principal Android Developer Name Role Phone Don VENCES, Jessenia Primary Care Provider Gene Thompson Unavailable [phone] Migration, Provider Unavailable Unavailable Allergies Allergen (clinical drug ingredient) Drug/Non Drug Allergy documented on EMR Reaction Allergy Type Onset Date Status No Known Drug Allergy Unknown Drug Allergy Active REASON FOR VISIT EMR-Ozzie Encounters Encounter Location Date Provider Diagnosis Migrated_Facility 0 0 01/15/2024 Provider Migration Plan Of Treatment No Information Progress Notes * Robbie RUBIO ADOB:[birth year] (58 yo M)Acc No.[id number]:01/15/2024 Patient: Mary Kay PERRY Robbie A :1965 A ge:58 Y S ex:Male Address:[address] [place], [place] [address] [address] Subjective: * Chief Complaints: * E MR-Ozzie * Allergies: N o Known Drug Allergy: Allergy * * Date:
--- OUTSIDE RECORDS SUMMARY | 2024-10-09 03:40 | XMS_ITS ---
Author Organization [facility] Address [address] [place] [phone] Care Team Providers Care Hr Receptionist Name Role Phone Jessenia Ochoa Primary Care Provider [phone] REASON FOR VISIT Chronic Care, 6 month, -Silva Crespo LPN Medications Medication SIG (Take, Route, Frequency, Duration) Notes Start Date End Date Status Magnesium 400 MG as directed Orally Active Potassium 99 MG 1 tablet Orally Once a day Active Aspirin 81 MG 1 tablet Orally Once a day Active PARoxetine HCl 10 MG 1 tablet in the morning Orally Once a day; Duration: 90 days 04/11/2024 Active Ketoconazole 200 MG 1 tablet Orally for skin fungus Once a day; Duration: 10 days not taking 07/03/2020 Active Verapamil HCl ER 120 MG 1 capsule Orally Once a day; Duration: 90 days Active Telmisartan-HCTZ 80-12.5 MG 1 tablet Orally Once a day; Duration: 90 days Active Social History Sex Assigned At : Social History Observation Description Sex Assigned At Male Encounters Encounter Location Date Provider Diagnosis [facility] [address] [place] [phone] 10/09/2024 Jessenia Ochoa Plan Of Treatment Next Appt Details Provider Name:Jessenia christensen, 02/25/2025 08:40:00 AM, [address], [place], [phone], Progress Notes * Varun TRACY:1965 (58 yo M)Acc No.[id number]:10/09/2024 FaceToFace Patient: Cresencio DAVIS Provider: Tracy Ochoa MD Case Label: Date Of Injury: :1965 A ge:58 Y S ex:Male Date:10/09/2024 Address:[address] [place], [place] [id number] Patient's Default Facility:[address] [place] [address] Subjective: * Chief Complaints: * 1 . Chronic Care, 6 month. 2. -Silva Crespo LPN. * Medical History: * Medications: T aking Verapamil HCl ER 120 MG Capsule Extended Release 24 Hour 1 capsule Orally Once a day , Taking Telmisartan-HCTZ 80-12.5 MG Tablet 1 tablet Orally Once a day , Taking PARoxetine HCl 10 MG Tablet 1 tablet in the morning Orally Once a day , Taking Ketoconazole 200 MG Tablet 1 tablet Orally for skin fungus Once a day , Notes to Pharmacist: not taking, Taking Aspirin 81 MG Tablet Delayed Release 1 tablet Orally Once a day , Taking Potassium 99 MG Tablet 1 tablet Orally Once a day , Taking Magnesium 400 MG Tablet as directed Orally Objective: * Vitals: Assessment: Plan: * Treatment: Care Plan: * Problems: * Billing Information: * Visit Code: * Procedure Codes: * Electronic signature of Valentine Ochoa MD on 11/12/2024 at 05:48 AM CDT Sign off status: Pending * Provider: Tracy Ochoa MD Date: 10/09/2024 Generated for Yaneli valiente/Daniela/Pelon on: 11/12/2024 05:48 AM CDT
--- OUTSIDE RECORDS SUMMARY | 2024-11-08 09:40 | XMS_ITS ---
Author Organization [facility] Address [address] [place] [id number] Care Team Providers Care Lawyers Name Role Phone Jessenia Ochoa Primary Care Provider [phone] Allergies No Known Allergies REASON FOR VISIT ER f/u [place], Headache, Sinus Drainage, - Roya Way LPN Medications Medication SIG (Take, Route, Frequency, Duration) Notes Start Date End Date Status Ketoconazole 200 MG 1 tablet Orally for skin fungus Once a day; Duration: 10 days not taking 07/03/2020 Active Verapamil HCl ER 120 MG 1 tablet Orally Once a day Active Aspirin 81 MG 1 tablet Orally Once a day Active Magnesium 400 MG as directed Orally Active Potassium 99 MG 1 tablet Orally Once a day Active Cetirizine HCl 10 MG 1 tablet Orally Onc e a day; Duration: 30 days 11/08/2024 Active PARoxetine HCl 20 MG 1 tablet in the morning Orally Once a day; Duration: 30 days 04/11/2024 Active Montelukast Sodium 10 MG 1 tablet Orally Once a day; Duration: 30 days 11/08/2024 Active Telmisartan-HCTZ 80-12.5 MG 1 tablet Orally Once a day; Duration: 90 days Active Azelastine HCl 0.1 % 2 puffs (1 spray in each nostril) Nasally Twice a day; Duration: 30 days 11/08/2024 Active Social History Tobacco Use: Social History Observation Description Date Details (start date - stop date) Former Smoker NA - NA Sex Assigned At : Social History Observation Description Sex Assigned At Male CANDI Drug Questionnaire Question Answer Notes Have you used drugs other th an those for medical reasons in the past 12 months? No Have you ever had an STD [...] (1 point) How often did you have six o [...] Problem Status W/U Status Risk Notes Problem Other allergic rhinitis (J30.89) Active confirmed Vital Signs Weight 185.2 lbs 11/08/2024 Weight-kg 84.01 Kg 11/08/2024 Height 68.5 in 11/08/2024 BMI 27.75 kg/m2 11/08/2024 Blood pressure systolic 138 mm Hg 11/09/19 25 Blood pressure diastolic 66 mm Hg 025 Heart Rate 69 /min 11/08/2024 Temperature 97.0 degrees Fahrenheit 11/09/19 25 Respiratory Rate 20 /min 11/08/2024 Oximetry 97 11/08/2024 Encounters Encounter Location Date Provider Diagnosis [facility] [address] [place] [id number] 11/08/2024 Jessenia Ochoa Essential hypertension I10 ; Other allergic rhinitis J30.89 and Anxiety F41.9 Assessments Encounter Date Diagnosis (ICD Code) Assessment Notes Treatment Notes Treatment Clinical Notes Section Notes 11/08/2024 Essential hypertension (ICD-10 - I10) It's normal [...] side effects from your blood pressure medicine. 11/08/2024 Other allergic rhinitis (ICD-10 - J30.89) If you are allergic to house dust [...] pollen counts are high. Use a vacuum chrome cleaner with a HEPA filter or a [...] dander. You may need to replace them. 11/08/2024 Anxiety (ICD-10 - F41.9) Recognize and accept [...] the numbers for these national suicide hotlines: 7-806-475-TALK ( ) and 0-754-MUIQMXR ( ). If you or someone you know talks about suicide or feeling hopeless, get help right away. Watch closely for changes in your health, and be sure to contact your doctor if: - You have anxiety or fear that affects your life. - You have symptoms of anxiety that are new or different from those you had before. Plan Of Treatment Medication Medication Name Sig Start Date Stop Date Notes Cetirizine HCl 10 MG 1 tablet Orally Onc e a day; Duration: 30 days 11/08/2024 PARoxetine HCl 20 MG 1 tablet in the mor ramon Orally Once a day; Duration: 30 days 04/11/2024 Montelukast Sodium 10 MG 1 tablet Orally Once a day; Duration: 30 days 11/08/2024 Azelastine HCl 0.1 % 2 puffs (1 spray in each nostril) Nasally Twice a day; Duration: 30 days 11/08/2024 Treatment Notes Assessment Notes Essential hypertension It's normal for blood pressure to go [...] side effects from your blood pressure medicine. Other allergic rhinitis If you are allergic to house dust [...] pollen counts are high. Use a vacuum chrome cleaner with a HEPA filter or a [...] dander. You may need to replace them. Anxiety Recognize and accept your anxiety. Then, when [...] the numbers for these national suicide hotlines: 1-757-004-TALK ( ) and 8-503-GZDVPVC ( ). If you or someone you know talks about suicide or feeling hopeless, get help right away. Watch closely for changes in your health, and be sure to contact your doctor if: - You have anxiety or fear that affects your life. - You have symptoms of anxiety that are new or different from those you had before. Next Appt Details Follow Up: february eduardat , [place], Reason: Provider Name:Jessenia christensen, 02/25/2025 08:40:00 AM, [address], [place], [place], [phone], Progress Notes * Mery TRACYOB:1965 (58 yo M)Acc No.[id number]:11/08/2024 FaceToFace Patient: Mary Kay LOVELACEVICKY Robbie Provider: Tracy Ochoa MD Case Label: Date Of Injury: :1965 A ge:58 Y S ex:Male Date:11/08/2024 Address:[address] [place], [place] [id number] Patient's Default Facility:[address] [place] [address] [facility] Check In:02:40 PM CSTCheck O ut:03:28 PM PRINCIPAL CONSULTANT Subjective: * Chief Complaints: * 1 . ER f/u [place]. 2. Headache. 3. Sinus Drainage. 4. - Roya Way LPN. * HPI: C onstitutional: Robbie Tracy, a 58-year-old male, presented for an ER followup visit focused on chronic sinus symptoms, chest congestion, anxiety episodes, and elevated blood pressure. He described a persistent pressure in his head, equilibrium disturbances, and frequent popping of his ears over the past three to four weeks. He noted thick mucus draining behind his throat and mouth. He expressed feeling generally sniffy and yucky. Concerned about chronic sinus issues and possible allergic reactions, he shared that he is currently staying in a place with multiple dogs and does not use allergy filters. Despite these symptoms, he maintains an active lifestyle, walking and jogging five to eight miles a day, and is mindful of environmental triggers, attempting to spit out mucus rather than swallow it. He also described episodes where mucus entered his chest, causing difficulty breathing and requiring him to cough vigorously to clear his airways. These episodes occasionally led to panic attacks, though he denied any current tightness or heaviness in his chest and reported no history of asthma. He recounted a recent ER visit where chest X-ray and blood work ruled out heart attack, stroke, congestive heart failure, and infection. He continues to monitor his symptoms closely and uses a blood pressure monitor at home. Anxiety and panic attacks have been a recurring concern. He reported a significant panic attack associated with elevated blood pressure, and ongoing anxiety about his health. He started Paxil in March and regularly checks his blood pressure morning, day, and night, having purchased a new monitor for this purpose. Paxil has been very helpful, but he does believe a higher dose will be more helpful. He denies any side effects with current therapy. His blood pressure spiked to 168/100 during a panic attack but typically runs between 117-118/76-78, with recent readings in the 130s. He expressed concern about his blood pressure remaining elevated after anxiety episodes and continues to monitor it closely, with regular chronic care visits scheduled for management. He also follows with cardiology. I nterim History: Reviewed records- seeing cardiology, Dr Lorenzo, [place], Sept 2024 for preop clearance, plans ECHO, may proceed with dental surgery. Recommends antibiotic prophylaxis. Consider magnesium supplement 400 mg qd for possible short bursts of sinus tach with report of palpitations. [place], [place], Apr 2024, Dr Vidales, NSR, [facility] ED visit 11-07-24 for SOB, dyspnea x few weeks, coughing up white sputum. Denies CP. Hx HTN. CXR wnl. CBC, BMP wnl. BNP, troponin wnl. Rx prednisone 40 mg x 4 days. * Medical History: E ssential HTN, dx around 1999, well controlled, Prior tobacco use, less than 10 pack yr hx. , palpitations, Dr Lorenzo, cardiology, [place], recommends OTC magnesium 400 mg for possible [...] ETOH use above recommended levels, Angioedema, saw bottle feeder in 2012, began jaswinder q am and clarinex q pm, Tinea versicolor, cleared in a few days with oral tablets several years ago with bottle feeder. clears with ketoconazole, Punch bx x 2 on left upper back and cryo x 1 on right forearm, benign, normal carotid and ECHO 2010, old records, [place], Family hx of bladder cancer, normal UA here, anxiety, symptoms began 1999. Began treatment in 2002 with paxil. 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 * Surgical History: r ight carpel tunnel release- DR Grant 02-02-23. * Family History: F ather: alive, Bladder Cancer, treated successfully. Hx of tobacco use, diagnosed with Other malignant neoplasm of unspecified site, Hypertension, unspecified essential. M other: alive, tinea versicolor, diagnosed with Hypertension, unspecified essential. S iblings: alive, diagnosed with Hypertension, unspecified essential. C martien: alive. 1 brother(s) , 2 sister(s) - healthy. 1 son(s) , 1 daughter(s) - healthy. . Sister, depression. Father and sister, anxiety. * Social History: T obacco Use: T obacco Control (Standard) [...] Discussed O ther. A dult Health Maintenance-: M onthly Testicular Self-Exam Counseling for 15-35 years of age C ounseled Y es, D ate Counseled 0 11/03/2023. C olorectal Cancer Screening H ave you had a colorectal cancer screening? Y es, T ype of Screening: C olonoscopy, D ate: 0 12/17/2016, C olonoscopy Y es, C olonoscopy Test Date 0 12/17/2016, C olonscopy Repeat Date 2 027. F michel Shot Y early N o, C ounseled Y es, D ate Counseled 0 11/03/2023. Tetanus t etanus within the last 5 years Y es 09-28-2019.. Z alejandrina Vaccine age 50> C ompleted N o Pt declines, C ounseled Y es, D ate Counseled 0 08/18/2022.?- C ompleted 0 11/03/2023. - D ental Visit Yearly N o, C ounseled Y es, D ate Counseled 0 11/03/2023. C ommunication Needs: C ommunication Needs D ifficulty Hearing N o, D ifficulty with Vision Y es reading glasses, D ifficulty with Reading or Writing N o. D rug/Alcohol: N ADALI Drug Questionnaire H ow many times in the past year have you used an illegal drug or prescription medication for nonmedical reasons? N one, P ositive Screening N o, H ave you used drugs other than those for medical reasons in the past 12 months? N o. A IMKALA-C (Standard) D id you have a drink containing alcohol in the past year? Y es, H ow often did you have a drink containing alcohol in the past year? 2 to 4 times a month (2 points), H ow many drinks did you have on a typical day when you were drinking in the past year? 3 or 4 drinks (1 point), H ow often did you have six or more drinks on one occasion in the past year??2 to 4 times a month (2 points), P oints 5 , I nterpretation P ositive. 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 Care Proxy?No. S moked episodically, often non-smoker for 10 years at a time, less than 10 pack year hx total per pt report. * Medications: T aking Telmisartan-HCTZ 80-12.5 MG Tablet 1 tablet Orally Once a day , Taking Verapamil HCl ER 120 MG Tablet Extended Release 1 tablet Orally Once a day , Taking Ketoconazole 200 MG Tablet 1 tablet Orally for skin fungus Once a day , Notes to Pharmacist: not taking, Taking PARoxetine HCl 10 MG Tablet 1 tablet in the morning Orally Once a day , Taking Aspirin 81 MG Tablet Delayed Release 1 tablet Orally Once a day , Taking Potassium 99 MG Tablet 1 tablet Orally Once a day , Taking Magnesium 400 MG Tablet as directed Orally , Medication List reviewed and reconciled with the patient * Allergies: N .K.D.A. Objective: * Vitals: W t: 185.2 lbs, Wt Kgs: 84.01 Kg, Ht: 68.5 in, BMI:27.75Index, BP:138/66mm Hg, HR: 69 /min, Temp: 97.0 F, RR: 20 /min, Pain scale: 6, Oxygen sat %: 97. * Examination: G eneral Examination: GENERAL APPEARANCE: NAD, pleasant, cooperative, alert and oriented. EYES: PERRL, sclera anicteric, conjunctiva cobblestoned.? HEENT nares boggy and cobblestoned, EAC and TM's wnl.? ORAL CAVITY: u nremarkable, mucosa moist, no lesions. NECK/THYROID: supple, no LAD, no bruit. CARDIOVASCULAR: normal S1S2, regular rate and rhythm.? RESPIRATORY n o rales, wheezes, rhonchi or increased WOB. CTA B. GASTROINTESTINAL soft, ND/NT, BS normoactive, no palpable masses or organomegaly. NEUROLOGIC EXAM: grossly intact. Skin pink, warm and dry. EXTREMITIES n o clubbing, cyanosis, or edema. PERIPHERAL PULSES: 2+ and equal bilaterally. PSYCH a ffect normal, good eye contact, normal speech, oriented x 3 . Assessment: * Assessment: 1. O ther allergic rhinitis - J30.89 (Primary) 2 . E ssential hypertension - I10 3 . A nxiety - F41.9 Plan: * Treatment: 2. E ssential hypertension Notes: It's normal for blood pressure to go [...] side effects from your blood pressure medicine. 3. A nxiety Increase PARoxetine HCl Tablet, 20 MG, 1 tablet in the morning, Orally, Once a day, 30 days, 30, Refills 6. Notes: Recognize and accept your anxiety. Then, when [...] the numbers for these national suicide hotlines: 5-354-580-TALK ( ) and 9-183-XNXIFHP ( ). If you or someone you know talks about suicide or feeling hopeless, get help right away. Watch closely for changes in your health, and be sure to contact your doctor if: - You have anxiety or fear that affects your life. - You have symptoms of anxiety that are new or different from those you had before. * Procedure Codes: 0 521 UB Posting Code, G0467 [facility] VISIT ESTABLISHED PATIENT * Follow Up: h as February appmiriam, [place] Care Plan: * Problems: * Billing Information: * Visit Code: 92911 Office Visit, Est Pt., Level 3. * Procedure Codes: 0521 UB Posting Code. G0467 [facility] VISIT ESTABLISHED PATIENT. * Electronic signature of Valentine Ochoa MD on 11/12/2024 at 05:47 AM CDT Sign off status: Pending * Provider: Tracy Ochoa MD Date: 11/08/2024 Generated for Yaneli valiente/Daniela/Vladsmitting on: 11/12/2024 05:47 AM CDT History and Physical Notes * HPI (History of Present Illness) Category Sub-Category Detail Notes Category Not es Constitutional Robbie Tracy, a 58-year-old male, presented for an ER followup visit focused on chronic sinus symptoms, chest congestion, anxiety episodes, and elevated blood pressure. He described a persistent pressure in his head, equilibrium disturbances, and frequent popping of his ears over the past three to four weeks. He noted thick mucus draining behind his throat and mouth. He expressed feeling generally sniffy and yucky. Concerned about chronic sinus issues and possible allergic reactions, he shared that he is currently staying in a place with multiple dogs and does not use allergy filters. Despite these symptoms, he maintains an active lifestyle, walking and jogging five to eight miles a day, and is mindful of environmental triggers, attempting to spit out mucus rather than swallow it. He also described episodes where mucus entered his chest, causing difficulty breathing and requiring him to cough vigorously to clear his airways. These episodes occasionally led to panic attacks, though he denied any current tightness or heaviness in his chest and reported no history of asthma. He recounted a recent ER visit where chest X-ray and blood work ruled out heart attack, stroke, congestive heart failure, and infection. He continues to monitor his symptoms closely and uses a blood pressure monitor at home. Anxiety and panic attacks have been a recurring concern. He reported a significant panic attack associated with elevated blood pressure, and ongoing anxiety about his health. He started Paxil in March and regularly checks his blood pressure morning, day, and night, having purchased a new monitor for this purpose. Paxil has been very helpful, but he does believe a higher dose will be more helpful. He denies any side effects with current therapy. His blood pressure spiked to 168/100 during a panic attack but typically runs between 117-118/76-78, with recent readings in the 130s. He expressed concern about his blood pressure remaining elevated after anxiety episodes and continues to monitor it closely, with regular chronic care visits scheduled for management. He also follows with cardiology. Interim History Reviewed records- seeing cardiology, Dr Lorenzo, [place], Nov 2023 for preop clearance, plans ECHO, may proceed with dental surgery. Recommends antibiotic prophylaxis. Consider magnesium supplement 400 mg qd for possible short bursts of sinus tach with report of palpitations. [place], Apr 2024, Dr Vidales, NSR, [facility] ED visit 11-07-24 for SOB, dyspnea x few weeks, coughing up white sputum. Denies CP. Hx HTN. CXR wnl. CBC, BMP wnl. BNP, troponin wnl. Rx prednisone 40 mg x 4 days. Examination Category Sub-Category Detail Notes Category Not es General Examination HEENT nares boggy and cobblestoned, EAC and TM's wnl NECK/THYROID: supple, no LAD, no b ruit CARDIOVASCULAR: normal S1S2, regular rate and rhythm RESPIRATORY no rales, wheezes, r honchi or increased WOB. CTA B GASTROINTESTINAL soft, ND/NT, BS norm oactive, no palpable masses or organomegaly EXTREMITIES no clubbing, cyanosi s, or edema GENERAL APPEARANCE: NAD, pleasant, coope rative, alert and oriented Skin pink, warm and dry NEUROLOGIC EXAM: grossly intact ORAL CAVITY: unremarkable, mucosa moist, no lesions PERIPHERAL PULSES: 2+ and equal bilater ally PSYCH affect normal, good eye contact, normal speech, oriented x 3 EYES: PERRL, sclera anicte regine, conjunctiva cobblestoned
[2024-11-12 05:45] VITALS: BP 155/96; PULSE 65; RESP 18; TEMP 36.4; O2SAT 97; BMI 27.6
--- OUTSIDE RECORDS SUMMARY | 2024-11-12 05:48 | XMS_ITS | Patient Health Record ---
Author Organization [facility] Address [address] [place] [address] Care Team Providers Care Human Resource Consultant Name Role Phone Don VENCES, Jessenia Primary Care Provider Gene Thompson Unavailable [phone] Migration, Provider Unavailable Unavailable Allergies Allergen (clinical [...] W/U Status Risk Notes Problem Paresthesia (finding) (13060640) Paresthesia of skin (R20.2) Active confirmed Problem Carpal tunnel syndrome of right wrist (230444359201178) Carpal tunnel syndrome of right wrist (G56.01) Active confirmed Problem Lateral epicondylitis (828110957) Lateral epicondylitis of right elbow (M77.11) Active confirmed Problem Carpal tunnel syndrome (48542423) CTS (carpal tunnel syndrome) (G56.00) Active confirmed Problem Pain in limb (01291410) Pain of right hand (M79.641) Active confirmed Problem Inflammation of bursa of olecranon (598066246) Olecranon bursitis of right elbow (M70.21) Active confirmed Problem Complex regional pain syndrome type I of right upper limb (disorder) (776327278710850) Complex regional pain syndrome type 1 of right upper extremity (G90.511) Active confirmed Problem Postprocedural states (730822200) Status post carpal tunnel release (Z98.890) Active confirmed Encounters Encounter Location Date Provider Diagnosis Migrated_Facility 0 0 01/14/2024 Provider Migration Migrated_Facility 0 0 01/15/2024 Provider Migration Plan Of Treatment Pending Test Test Name Order Date Basic Metabolic Panel (BMP) 94369 2022 CBC Reflex Man Diff 48920, 77547 023 Electrocardiogram 12 Lead Tracing-[id number] 01/04/2023 Insurance Providers Payer Name Payer Address Payer Phone Subscriber Number Group Number Insured Name Patient Relationship to Insured Coverage Start Date Coverage End Date [place] [address] [place] [address] [id number] Robbie Rubio Self - patient is the insured Medical (General) History Surgical History Surgery Date(Month/Year) Carpal tunnel release 02/02/2023 Hospitalization History Reason Date(Month/Year) Surgical Hx
--- OUTSIDE RECORDS SUMMARY | 2024-11-12 05:48 | XMS_ITS | Patient Health Record ---
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 CMP-[place]OC[place] e/[place] ONLY Reviewed date:08/23/2024 01:46:27 PM Interpretation:Normal Performing Lab: Notes/Report: Lipid Panel ([place] t[place] Only) Reviewed date:08/23/2024 01:46:27 PM Interpretation:OK for Patient Performing Lab: Notes/Report: Reason For Referral No Information Medications Medication SIG (Take, Route, Frequency, Duration) Notes Start Date End Date Status Cetirizine HCl 10 MG 1 tablet Orally Onc e a day; Duration: 30 days 11/08/2024 Active PARoxetine HCl 20 MG 1 tablet in the morning Orally Once a day; Duration: 30 days 04/11/2024 Active Montelukast Sodium 10 MG 1 tablet Orally Once a day; Duration: 30 days 11/08/2024 Active Telmisartan-HCTZ 80-12.5 MG 1 tablet Orally Once a day; Duration: 90 days Active Ketoconazole 200 MG 1 tablet Orally for skin fungus Once a day; Duration: 10 days not taking 07/03/2020 Active Verapamil HCl ER 120 MG 1 tablet Orally Once a day Active Aspirin 81 MG 1 tablet Orally Once a day Active Magnesium 400 MG as directed Orally Active Potassium 99 MG 1 tablet Orally Once a day Active Azelastine HCl 0.1 % 2 puffs (1 spray in each nostril) Nasally Twice a day; Duration: 30 days 11/08/2024 Active Immunizations Vaccine Route Administration Date Status Comme nts Tdap 11-100 Yrs old-Private Stock ID Intradermal [...] Status W/U Status Risk Notes Problem Overweight (431787225) Overweight (E66.3) Active confirmed Problem Essential hypertension (22493006) Essential hypertension (I10) Active confirmed Problem Anxiety (21519229) Anxiety (F41.9) Active confirmed Problem Allergic rhinitis (51245330) Other allergic rhinitis (J30.89) Active confirmed Problem Carpal tunnel syndrome (21652321) Right carpal tunnel syndrome (G56.01) Active confirmed Problem Angioedema (10191138) Angioedema, subsequent encounter (T78.3XXD) Active confirmed Problem Allergic rhinitis (83117581) Allergic rhinitis, unspecified seasonality, unspecified trigger (J30.9) Active confirmed Problem Chronic alcohol use (F10.90) Active confirmed Vital Signs Heart Rate 69 /min 11/08/2024 Temperature 97.0 degrees Fahrenheit 11/08/2024 Respiratory Rate 20 /min 11/08/2024 Oximetry 97 11/08/2024 Blood pressure diastolic 66 mm Hg 11/08/2024 Weight-kg 84.01 Kg 11/08/2024 Height 68.5 in 11/08/2024 Blood pressure systolic 138 mm Hg 11/08/2024 Weight 185.2 lbs 11/08/2024 BMI 27.75 kg/m2 11/08/2024 Encounters Encounter Location Date Provider Diagnosis [facility] [address] [place], [place] [id number] 11/08/2024 Jessenia Ochoa Essential hypertension I10 ; Other allergic rhinitis J30.89 and Anxiety F41.9 [facility] [address] [place], [place] [id number] 04/02/2024 Jessenia Ochoa Essential hypertension I10 ; Allergic rhinitis, unspecified seasonality, unspecified trigger J30.9 ; Anxiety F41.9 ; Overweight E66.3 and Dietary counseling Z71.3 [facility] [address] [place], [place] [id number] 04/11/2024 Jessenia Ochoa Overweight E66.3 ; Anxiety F41.9 and Dietary counseling Z71.3 [facility] [address] [place], [place] [id number] 06/21/2024 Jessenia Ochoa Overweight E66.3 ; Essential hypertension I10 and Dietary counseling Z71.3 [facility] [address] [place], [place] [id number] 08/21/2024 Jessenia Ochoa Essential hypertension I10 ; Chronic alcohol use F10.90 ; Anxiety F41.9 and Tinea versicolor B36.0 [facility] [address] [place], [place] [id number] 02/23/2024 Jessenia Ochoa Essential hypertension I10 [facility] [address] [place] [id number] 03/06/2024 Jessenia Ocoha [facility] [address] [place], [place] [id number] 03/20/2024 Jessenia Ochoa [facility] [address] [place], [place] [id number] 03/23/2024 Jessenia Ochoa [facility] [address] [place], [place] [id number] 03/26/2024 Jessenia Ochoa [facility] [address] [place], [place] [id number] 06/20/2024 Jessenia Ochoa [facility] [address] [place], [place] [id number] 07/24/2024 Jessenia Ochoa [facility] [address] [place], [place] [id number] 07/30/2024 Jessenia Ochoa [facility] [address] [place], [place] [id number] 08/09/2024 Jessenia Ochoa Essential hypertension I10 [facility] [address] [place], [place] [id number] 10/17/2024 Jessenia Ochoa Essential hypertension I10 [facility] [address] [place], [place] [phone] 11/07/2024 Jessenia Ochoa Assessments Encounter Date Diagnosis (ICD Code) Assessment [...] pollen counts are high. Use a vacuum vat cleaner with a HEPA filter or a [...] the numbers for these national suicide hotlines: 7-466-138-TALK ( ) and 9-236-KUSTDYX ( ). If you or someone you [...] medicine. 10/17/2024 Essential hypertension (ICD-10 - I10) 11/08/2024 Essential hypertension (ICD-10 - I10) It's [...] pollen counts are high. Use a vacuum vat cleaner with a HEPA filter or a [...] dander. You may need to replace them. 08/21/2024 Chronic alcohol use (ICD-10 - F10.90) [...] Examples include Alcoholics Anonymous, Narcotics Anonymous, or [employer]. This type of support can help you [...] a list of the medicines you take. 11/08/2024 Anxiety (ICD-10 - F41.9) Recognize and [...] the numbers for these national suicide hotlines: 7-677-725-TALK ( ) and 9-852-CICTIHP ( ). If you or someone you know talks about suicide or feeling hopeless, get help right away. Watch closely for changes in your health, and be sure to contact your doctor if: - You have anxiety or fear that affects your life. - You have symptoms of anxiety that are new or different from those you had before. 06/21/2024 Dietary counseling (ICD-10 - Z71.3) The following information is provided to help patients understand the role BMI, nutrition, and physical activity play in a patient's overall health. Please review the information available in these links. ADULT BMI: https://www.cdc.gov /healthyweight/asse ssing/bmi/adult_bmi /english_bmi_calcul ator/bmi_calculator .html DIETARY GUIDELINES: https://www.dietary guidelines.gov/site s/default/files/202 03-23/Dietary_Guidel ines_for_Americans- 2020-... PHYSICAL ACTIVITIES GUIDELINES: https://www.cdc.gov /healthyweight/phys [...] the numbers for these national suicide hotlines: 1-713-332-TALK ( ) and 5-772-PHDRFGG ( ). If you or someone you [...] do something you enjoy. Go to a [employer] movie, or take a walk or hike. [...] the numbers for these national suicide hotlines: 9-526-402-TALK ( ) and 8-890-LUQEXWP ( ). If you or someone you [...] scales. The spots and patches may be marketing assistant retail division or darker than the skin around them. [...] risk of injury., Fluticasone Metered Dose Nasal Ary (FLUTICASONE SPRAY - NASAL) material was printed, [...] AM, [address], [place], [id number], Insurance Providers Payer Name Payer Address Payer Phone Subscriber Number Group Number Insured Name Patient Relationship to Insured Coverage Start Date Coverage End Date [facility] [address] [address] [place] [address] [id number] Cresencio Rubio Self - patient is the insured Medical (General) History Medical History History ICD Code Essential HTN, dx around 1999, well cont rolled Prior tobacco use, less than 10 pack yr hx. palpitations, Dr Lorenzo, [facility], recommends OTC magnesium 400 mg for possible [...] prior A K tx with cryotherapy in 2019. Pt educated about sun protection ETOH use above recommended levels angioedema, saw calibration checker in 2012, b mya jaswinder q am and clarinex q pm tinea versicolor, cleared in a few days with oral tablets several years ago with calibration checker. clears with ketoconazole punch bx x 2 on left upper back and cryo x 1 on right forearm, benign normal carotid and ECHO 2010, old record s, [place] Family hx of bladder cancer, normal UA h ere anxiety, symptoms began 1999 . Began treatment in 2002 with paxil. Worked well, but caused some SE. In 2023 pt reports following with network coordinator in [place] annually from about 1994 to 2005 for ECHO for leaky valve Reports normal cardiac calcium score in early 1999's in [place] Surgical History Surgery Date(Month/Year) right carpel tunnel release- DR Grant
--- NOTE | 2024-11-12 05:51 | ECG_ITS ---
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 Measurements Intervals [place] Rate: 59 P: 32 CT: 162 QRS: 31 QRSD: 86 T: 29 QT: 400 QTc: 398 Interpretive Statements SINUS BRADYCARDIA Compared to ECG 11/07/2024 02:49:37 Sinus rhythm no longer present Electronically Signed On 11-13-2024 08:08:52 CDT by Bridgette Cabezas M.D. [email or web address]
--- NOTE | 2024-11-12 05:54 | XRR_ITS ---
PROCEDURE INFORMATION: Exam: XR Chest Exam date and time: 11/12/2024 5:55 AM Age: 58 years old Clinical indication: Chest pressure; C/O chest pain with hypertension. History of copd. ; Additional info: Cp TECHNIQUE: Imaging protocol: Radiologic exam of the chest. Views: 1 view. COMPARISON: CR (CHEST, ) 11/07/2024 3:03 AM FINDINGS: Lungs: Unremarkable. No consolidation. Pleural spaces: Unremarkable. No pleural effusion. No pneumothorax. Heart/Mediastinum: Unremarkable. No cardiomegaly. Bones/joints: Unremarkable. XR/XR chest 1V portable [id number] IMPRESSION: No acute findings.
[2024-11-12 06:09] VITALS: BP 136/91; PULSE 60; RESP 16; O2SAT 95
--- NOTE | 2024-11-12 06:25 | W.ED.RECABL ---
HPI - Recheck/Abnormal Lab/Rx General: Chief Complaint: Recheck/Abnormal Lab/Rx Stated Complaint: BP High Time Seen by Provider: 11/12/24 05:48 History of Present Illness: 58-year-old male presents emergency room with multiple complaints. He had some abdominal pain nausea brief episode of chest pain which has resolved and fluctuating blood pressures at home. Patient has a history of hypertension hyperlipidemia has mitral valve prolapse. He is on telmisartan hydrochlorothiazide as well as verapamil. He is not currently having any chest pain he is no known history of coronary artery disease. Earlier this year they noted a mitral murmur on transthoracic echo there is a question of vegetation on the mitral valve at a transesophageal echo was done which was normal there is a little bit of mitral regurg and mild mitral valve prolapse. Otherwise findings were unremarkable. He has no known history of coronary artery disease he is a former smoker. He was seen approximately a week ago with slightly productive cough of clear mucus. He followed up with his primary care doctor who thought it was likely allergies. He is not currently having any chest pain at this time. He had 1 episode of diarrhea last night. He measured blood pressures at home ranging from 150/100 to systolics of 100. Related Data Home Medications ?Medication ?Instructions ?Recorded ?Confirmed telmisartan 80 1 tab PO DAILY 11/23/23 11/12/24 mg-hydrochlorothiazide 12.5 mg tablet multivitamin 1 tab PO DAILY 04/25/24 11/12/24 azelastine 137 mcg (0.1 %) nasal 1 spray intranasal BID 11/12/24 11/12/24 spray cetirizine 10 mg tablet 10 mg PO DAILY 11/12/24 11/12/24 diphenhydramine HCl 25 mg tablet 50 mg PO TID PRN allergies 11/12/24 11/12/24 (Benadryl Allergy) montelukast 10 mg tablet 10 mg PO DAILY 11/12/24 11/12/24 paroxetine HCl 20 mg tablet 20 mg PO QAM 11/12/24 11/12/24 Previous Rx's ?Medication ?Instructions ?Recorded magnesium oxide 400 mg PO DAILY #90 tabs 11/23/23 verapamil 120 mg 24 hr 120 mg PO DAILY #90 caps 04/27/24 capsule,extended release aspirin 81 mg tablet,delayed 81 mg PO DAILY #30 tabs 11/12/24 release Allergies Allergy/AdvReac Type Severity Reaction Status Date / Time No Known Allergies Allergy Unverified 11/23/23 15:57 Review of Systems Const: Denies: fever(s) or chills Card: Reports: chest pain Resp: Denies: dyspnea GI: Reports: abdominal pain : Denies: dysuria, urinary frequency or urinary urgency Musc: Denies: neck pain or back pain Skin/Breast: Denies: rash PFSH ED PFSH: Medical History Palpitation Family History Father Bladder cancer Hyperlipidemia Mother Hyperlipidemia Social History Smoking and tobacco/nicotine status: former use of tobacco/nicotine Quit status (tobacco/nicotine): has quit using Year quit tobacco: 2023 Former quit date comment: smoked for 10 years 0.5 pack per day Alcohol intake: current Alcohol intake frequency: few times a week Alcohol type: beer Substance/Drug Use: never Physical Exam Const: COMMON NORMALS: no acute distress GENERAL APPEARANCE: cooperative and comfortable ORIENTATION/CONSCIOUSNESS: Yes awake, Yes oriented to person, Yes oriented to place and Yes oriented to time HENMT: COMMON NORMALS: normocephalic, atraumatic and hearing grossly normal bilaterally HEAD & SCALP: normocephalic and atraumatic Resp: COMMON NORMALS: normal respiratory effort, No retractions, No use of accessory muscles and clear to auscultation bilaterally AUSCULTATION: clear to auscultation bilaterally Cardio: COMMON NORMALS: regular rate, regular rhythm and No murmurs present (Cardio) RATE: regular rate RHYTHM: regular rhythm GI: COMMON NORMALS: Soft to palpation and No hepatosplenomegaly present AUSCULTATION: Yes normoactive bowel sounds PALPATION: Yes Soft to palpation, No Tenderness to palpation present (GI), No Guarding due to palpation present (GI) and Yes No hepatosplenomegaly present Extremity: COMMON NORMALS: normal to inspection, capillary refill normal, no clubbing, cyanosis or edema, no calf tenderness and no pedal edema Neuro: SENSORIUM/ORIENTATION: Yes oriented to person, Yes oriented to place and Yes oriented to time Skin: COMMON NORMALS: no rashes or lesions noted GENERAL SKIN EXAM: no rashes or lesions noted Course Vital Signs: Vital signs: Vital Signs Temperature 97.5 F L 11/12/24 05:45 Pulse Rate 60 11/12/24 11:36 Respiratory Rate 18 11/12/24 08:04 Blood Pressure 134/92 11/12/24 11:36 Pulse Oximetry 95 11/12/24 11:36 Oxygen Delivery Me thod Room Air 11/12/24 08:04 MDM - Recheck/Abnormal Lab/Rx Medical Decision Making Cardiac enzymes and EKG did not show any acute changes. Previous echocardiogram was normal. Lipase was elevated patient not having any further abdominal pains is not having any chest pain either. CT of the abdomen did not show any acute pancreatitis she does not regularly drink. Will discharge patient home open follow-up with with his primary care doctor. He should monitor his blood pressures at home and review with his primary care physician should also have her lipase rechecked in the next week return if he has further problems or change in symptoms. Was set up for an outpatient Lexiscan sestamibi stress test. Medical Records Echocardiogram CONCLUSIONS Normal left ventricular size, systolic function and wall thickness, with no regional wall motion abnormalities. Left ventricular ejection fraction is estimated at 60 %. Mildly thickened mitral valve. Mild mitral valve prolapse. 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 No mitral valve stenosis. Moderate mitral valve regurgitation. Normal flow velocities in the left atrial appendage. No thrombus visualized in the left atrial appendage. Normal interatrial septum. No intracardiac shunt by agitated saline noted. There is no pericardial effusion. Lorenzo Lorenzo MD (Electronically Signed) Final Date: 28 April 2024 Lab Data 11/12/24 06:00 11/12/24 06:00 Radiology Impressions Chest X-Ray 11/12/24 05:54 IMPRESSION: No acute findings. Abdomen/Pelvis CT 11/12/24 09:42 IMPRESSION: No acute findings in the abdomen or pelvis Laboratory Results WBC 10.33 10^3/uL (3.29-11.43) 11/12/24 06:00 RBC 5.90 10^6/uL (3.85-5.65) H 11/12/24 06:00 Hgb 17.20 g/dL (11.27-16.99) H 11/12/24 06:00 Hct 50.5 % (37-53) 11/12/24 06:00 MCV 85.6 fl (82-101) 11/12/24 06:00 MCH 29.2 pg (27-33) 11/12/24 06:00 MCHC 34.1 g/dL (30-55) 11/12/24 06:00 RDW 12.4 % (12.1-15.1) 11/12/24 06:00 Plt Count 269 10^3/cmm (157-399) 11/12/24 06:00 MPV 10.9 fL (7.4-10.4) H 11/12/24 06:00 Neut % (Auto) 64.2 % 11/12/24 06:00 Lymph % (Auto) 24.6 % 11/12/24 06:00 Woods % (Auto) 7.8 % 11/12/24 06:00 Eos % (Auto) 1.4 % 11/12/24 06:00 Baso % (Auto) 0.7 % 11/12/24 06:00 Neut # (Auto) 6.64 10^3/uL (1.8-7.7) 11/12/24 06:00 Lymph # (Auto) 2.5 10^3/uL (0.8-4.8) 11/12/24 06:00 Woods # (Auto) 0.8 10^3/uL (0.2-0.9) 11/12/24 06:00 Eos # (Auto) 0.1 10^3/uL (0.0-0.8) 11/12/24 06:00 Baso # (Auto) 0.1 10^3/uL (0.0-0.1) 11/12/24 06:00 Nucleated RBC % (auto) 0 % 11/12/24 06:00 Nucleated RBCs # 0.0 /100WBC 11/12/24 06:00 Sodium 134 mmol/L (136-145) L 11/12/24 06:00 Potassium 3.9 mmol/L (3.5-5.1) 11/12/24 06:00 Chloride 98 mmol/L (98-107) 11/12/24 06:00 Carbon Dioxide 23 mmol/L (22-29) 11/12/24 06:00 Anion Gap 16.9 (5-19) 11/12/24 06:00 BUN 17 mg/dL (6-20) 11/12/24 06:00 Creatinine 0.9 mg/dL (0.7-1.2) 11/12/24 06:00 GFR Calculation 86.7 mL/min (90-130) L 11/12/24 06:00 Glucose 102 mg/dL (65-115) 11/12/24 06:00 Calculated Osmolality 280 mOsm/kg (285-295) L 11/12/24 06:00 Calcium 9.1 mg/dL (8.5-10.5) 11/12/24 06:00 Total Bilirubin 0.8 mg/dL (0.15-1.2) 11/12/24 06:00 AST 15 U/L (0-40) 11/12/24 06:00 ALT 23 U/L (0-41) 11/12/24 06:00 Alkaline Phosphatase 46 U/L (40-130) 11/12/24 06:00 Troponin T Baseline < 6 ng/L (0-15) 11/12/24 06:00 Troponin T 120 Minute < 6.0 ng/L (0-15) 11/12/24 07:58 Delta Troponin T 0 ABS# (0-10) 11/12/24 07:58 NT-Pro-B Natriuret Pep < 36 pg/mL (0-125) 11/12/24 06:00 Total Protein 7.6 g/dL (6.6-8.7) 11/12/24 06:00 Albumin 4.6 g/dL (3.5-5.2) 11/12/24 06:00 Globulin 3.0 g/dL (1.3-4.6) 11/12/24 06:00 Lipase 171 U/L (13-60) H 11/12/24 06:00 Urine Color Yellow (Yellow) 11/12/24 05:54 Urine Appearance Clear (CLEAR) 11/12/24 05:54 Urine pH 5.5 (5-7) 11/12/24 05:54 Ur Specific [place] 1.021 (1.005-1.030) 11/12/24 05:54 Urine Protein Negative (Negative) 11/12/24 05:54 Urine Glucose (UA) Negative (Normal) 11/12/24 05:54 Urine Ketones Trace (Negative) 11/12/24 05:54 Urine Blood Negative (Negative) 11/12/24 05:54 Urine Nitrate Negative (Negative) 11/12/24 05:54 Urine Bilirubin Negative (Negative) 11/12/24 05:54 Urine Urobilinogen 1.0 mg/dL (Negative) 11/12/24 05:54 Ur Leukocyte Esterase Negative (Negative) 11/12/24 05:54 Urine RBC 0-2 /hpf (0-2) 11/12/24 05:54 Urine WBC 0-5 /hpf (0-5) 11/12/24 05:54 Ur Squamous Epith Cells 0-5 /hpf (0-5) 11/12/24 05:54 Amorphous Sediment Not Reportable 11/12/24 05:54 Urine Bacteria None seen /hpf (NONE) 11/12/24 05:54 Hyaline Casts 2.46 /lpf 11/12/24 05:54 All radiology interpretation(s) finalized by discharge EKG Data EKG 1: Interpretation: EKG 11/12/2024 0 553 sinus bradycardia rate 59 MN interval 162 QTc [address] changes no abnormalities unchanged from previous EKGs 04/27/2024 Discharge Plan Discharge Patient Disposition: Home Clinical Impression: Chest pain Qualifiers: Chest pain type: unspecified Qualified Code(s): R07.9 - Chest pain, unspecified Abdominal pain Qualifiers: Abdominal location: generalized Qualified Code(s): R10.84 - Generalized abdominal pain Hypertension Qualifiers: Hypertension type: primary hypertension Qualified Code(s): I10 - Essential (primary) hypertension Condition: Stable Prescriptions: New aspirin 81 mg tablet,delayed release (DR/EC) 81 mg PO DAILY Qty: 30 0RF No Action telmisartan-hydrochlorothiazid 80-12.5 mg tablet 1 tab PO DAILY magnesium oxide 400 mg magnesium tablet 400 mg PO DAILY Qty: 90 3RF multivitamin Tablet 1 tab PO DAILY verapamil 120 mg capsule,ext rel. pellets 24 hr 120 mg PO DAILY Qty: 90 1RF cetirizine 10 mg tablet 10 mg PO DAILY paroxetine HCl 20 mg tablet 20 mg PO QAM diphenhydramine HCl [Benadryl Allergy] 25 mg Tablet 50 mg PO TID PRN (Reason: allergies) montelukast 10 mg tablet 10 mg PO DAILY azelastine 137 mcg (0.1 %) spray,non-aerosol 1 spray INTRANASAL BID Discharge Orders: Discharge ED (Routine); Ordered 11/12/24 Ordered By: Armand Oneil Referrals: Jessenia Ochoa MD [Primary Care Provider, [facility]] Discharge Diet: Usual diet Discharge Activity: Resume usual activity Patient Instructions: Abdominal Pain (ED), Opioid Safety, Pain Management, Patient Portal & Wojciech Instructions Activity Restrictions/Additional Instructions: Thank you for choosing [facility] for your healthcare needs today. It is very important that you follow up as instructed or that you return to the Emergency Department should you have concerns or if your condition changes or worsens in any way. You were seen in the emergency room with complaints of chest pain and abdominal pain and variations in your blood pressure. Your cardiac enzymes and EKG did not show any acute findings. Your lipase was elevated however CT of your abdomen did not show any signs of acute pancreatitis. Recommend that you follow-up with your primary care doctor to have your lipase rechecked and monitor your blood pressure. Continue to log blood pressures at home and follow-up with primary care to review in the office. residential field manager will make arrangements for you to have an outpatient cardiac stress test. Print Language: Portuguese Coding Level of Care Code ED Travel Insurance Agent for Katty Askew
[2024-11-12 06:28] LABS: Hematocrit 50.5 % (37-53); Hemoglobin 17.20 g/dL (11.27-16.99); Mean Corpuscular HGB Conc 34.1 g/dL (30-55); Mean Corpuscular Hemoglobin 29.2 pg (27-33); Mean Corpuscular Volume 85.6 fl (82-101); Nucleated Red Blood Cells % 0 %; Platelet Count 269 10^3/cmm (157-399); Red Blood Count 5.90 10^6/uL (3.85-5.65); White Blood Count 10.33 10^3/uL (3.29-11.43)
[2024-11-12 06:29] LABS: Glucose Urine UA Negative (Normal); Nitrate Urine Negative (Negative); Specific Gravity, Urine 1.021 (1.005-1.030)
[2024-11-12 06:34] LABS: Add Urine Microscopic? YES
[2024-11-12 06:38] LABS: Troponin(5th) Baseline < 6 ng/L (0-15)
[2024-11-12 06:52] LABS: Alanine Aminotransferase 23 U/L (0-41); Albumin Level 4.6 g/dL (3.5-5.2); Alkaline Phosphatase 46 U/L (40-130); Anion Gap 16.9 (5-19); Aspartate Amino Transferase 15 U/L (0-40); Blood Urea Nitrogen 17 mg/dL (6-20); Calcium 9.1 mg/dL (8.5-10.5); Carbon Dioxide 23 mmol/L (22-29); Chloride 98 mmol/L (98-107); Creatinine Clr Calc Pharmacy 93.7199; Globulin 3.0 g/dL (1.3-4.6); Glucose 102 mg/dL (65-115); Lipase 171 U/L (13-60); NT Pro B Type Natriuretic Pept < 36 pg/mL (0-125); Osmolality Calculated 280 mOsm/kg (285-295); Potassium 3.9 mmol/L (3.5-5.1); Sodium 134 mmol/L (136-145); Total Protein 7.6 g/dL (6.6-8.7)
--- NOTE | 2024-11-12 07:54 | ECG_ITS ---
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 Measurements Intervals [place] Rate: 54 P: 42 CT: 165 QRS: 40 QRSD: 86 T: 31 QT: 403 QTc: 384 Interpretive Statements SINUS BRADYCARDIA Compared to ECG 11/12/2024 05:53:54 No significant changes Electronically Signed On 11-13-2024 18:34:24 CDT by Bridgette Cabezas M.D. [email or web address] [id number]
[2024-11-12 08:04] VITALS: BP 147/92; PULSE 57; RESP 18; O2SAT 94
[2024-11-12 08:28] LABS: Troponin 5 2HR < 6.0 ng/L (0-15); Troponin 5 2HR Delta 0 ABS# (0-10)
--- NOTE | 2024-11-12 09:42 | CT_ITS ---
WS: [id number] CT ABDOMEN PELVIS TECHNIQUE: Contrast-enhanced CT of the abdomen and pelvis with coronal and sagittal reformatted images. CLINICAL INFORMATION: abd pain COMPARISON: None. DLP: 678.[address] scans at [facility] use at least one of these dose optimization techniques: automated exposure control; mA and/or kV adjustment per patient size (includes targeted exams where dose is matched to clinical indication); or iterative reconstruction. FINDINGS: Lung bases are well aerated. Fatty liver. Normal portal vein and splenic vein. Normal spleen. Normal GE junction. Adrenal glands are normal. Normal renal parenchymal enhancement. No hydronephrosis. Small RIGHT renal cyst. Normal pancreatic parenchymal enhancement. Celiac and SMA are patent. Small fat-c ontaining umbilical hernia. Sigmoid diverticulosis. Normal appendix. Mild prostate enlargement with calcification. Prostate measures 3.[address]/CT abdomen pelvis w con* [id number] IMPRESSION: No acute findings in the abdomen or pelvis
[2024-11-12] MEDS: iohexol 350 mg/mL 500 mL Btl (per mL) IV (10:18)
[2024-11-12 11:36] VITALS: BP 134/92; PULSE 60; O2SAT 95
--- NOTE | 2024-11-12 17:04 | DCPLANNER ---
faxed outpatient lexiscan to scheduling
== END 2024-11-12 11:37 | disposition home or self-care (01) ==
PROVIDERS: Emergency Medicine; Emergency Provider Family Medicine; PCP Family Medicine
DX: R07.9 Chest pain, unspecified (principal); R10.84 Generalized abdominal pain; I10 Essential (primary) hypertension
CPT/HCPCS: 36415; 71045; 74177; 80053; 81001; 83690; 83880; 84484; 85025; 93005; 99285

== ENCOUNTER 2024-11-21 08:17 | Outpatient (CLI) | payer MEDICARE, SELFPAY ==
[2024-11-21 09:04] VITALS: BMI 28.1
--- NOTE | 2024-11-21 09:13 | ECG_ITS ---
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 Interpretive Statements Lung unchanged pre/post procedure; Intraprocedure shortess of breath; Symptoms resoled by discharge PROCEDURE: At the baseline, the EKG revealed sinus bradycardia with a normal ST Ts. The baseline heart was 56 bpm with a blood pressue of 133/76 mm of Hg Lexiscan was infused over a period of 20 seconds. A total of 0.4 milligrams of Lexiscan was infused. The stress phase was continued for a total of 5 minutes. Heart rate at the end of the stress phase was 70 bpm with a blood pressure 129/77 mm of Hg. The EKG at the peak infusion revealed no significant changes. Sestamibi was injected 20 seconds after the Lexiscan infusion. Heart rate at the end of the recovery phase was 68 bpm with a blood pressure of 125/74 mm of Hg. CONCLUSION: 1. No significant EKG changes with the LexiScan infusion 2. No LexiScan induced chest pain or cardiac arrhythmia 3. Normal blood pressure and heart rate response 4. Sestamibi/sestamibi perfusion scan pending; see separate report. Electronically Signed On 11-24-2024 13:23:15 CDT by Bridgette Cabezas M.D. [email or web address]
--- NOTE | 2024-11-21 09:20 | NMCV_ITS ---
NM vu perf SPECT r/s* [id number] Cresencio Rubio Age: 58 Gender: M : 1965 Exam Date: 11/21/2024 09:44 Ordering Phys: Armand Oneil DO Technologist: MARCOS Regan Exam Location: [facility] Indications: cp STRESS TEST Please see separate stress test report in [facility] for full findings IMAGE PROTOCOL Rest/Stress 1 Lexiscan Day Radiopharmaceutical Dose (mCi) Administration Site Administered by Rest: Tc-99m 10.3 IV MARCOS Regan Sestamibi Stress:Tc-99m 32.4 IV MARCOS Smith Sestamibi Rest: 21-Nov-2024 60 Discovery 630 Stress: 21-Nov-2024 30 Discovery 630 0.4mg Lexiscan. Images obtained in supine and prone position. SPECT RESULTS Technical Quality: Good Raw Data Analysis: Normal Image Corrections: No attenuation or motion correction applied Summed Stress Score: 7 Summed Rest Score: 0 Summed Difference Score: 7 PERFUSION FINDINGS Myocardial perfusion imaging revealing minimal to moderately decreased tracer uptake involving the basal and mid anterior, anterolateral knee, basal inferolateral and mid inferior wall segments. Reversibility was noted in all these areas with the supine imaging. However with the prone imaging, only subtle areas of reversibility in the mid inferior and anterolateral region. FUNCTIONAL RESULTS (calculated via Gated SPECT) Stress Image LV EF (%): 81 Stress EDV (mL):98 TID: 1.09 Stress ESV (mL):19 FUNCTIONAL FINDINGS: Segmental wall motion analysis revealing no gross wall motion abnormalities IMPRESSIONS 1. Myocardial perfusion imaging revealing moderately large moderate area of minimal to moderate decrease tracer uptake involving the anterior, anterolateral and, inferolateral and inferior regions with significant reversibility with the supine imaging. However with the prone imaging, only subtle area of reversibility was noted in the inferior and anterolateral regions. Because of the inconsistency, most of the Perfusion abnormalities are artifactual. Subtle area of ischemia in the inferior and anterolateral regions could be real. Clinical correlation is recommended. 2. Normal LV ejection fraction of 81%. 3. LV wall motion analysis revealing no gross wall motion abnormalities. 4. Normal LV volume. Dr Bridgette Cabezas MD FAC (Electronically Signed) Final Date: 21 November 2024 13:52 S
[2024-11-21 10:46] VITALS: BP 126/84; PULSE 78
== END 2024-11-21 08:18 | disposition home or self-care (01) ==
PROVIDERS: PCP Family Medicine; Visit Provider Family Medicine
DX: R94.39 Abnormal result of other cardiovascular function study (principal)
CPT/HCPCS: 36415; 78452; 93017; 96374; A9500; J2785

== ENCOUNTER 2024-12-04 14:42 | Outpatient (CLI) | payer MEDICARE, SELFPAY ==
--- NOTE | 2024-12-04 14:51 | XRR_ITS ---
PROCEDURE INFORMATION: Exam: XR Chest Exam date and time: 12/04/2024 3:04 PM Age: 58 years old Clinical indication: Few weeks coughing up large amounts of mucus; Additional info: Worsening cough TECHNIQUE: Imaging protocol: Radiologic exam of the chest. Views: 2 views. COMPARISON: CR (CHEST, ) 11/12/2024 5:55 AM FINDINGS: Lungs: Clear. No consolidation. Pleural spaces: No significant pleural effusion. No pneumothorax. Heart/Mediastinum: Within normal limits. Bones/joints: Intact. There are mild degenerative changes involving the thoracic and visualized upper lumbar spine. Other findings: None. XR/XR chest 2V* [id number] IMPRESSION: No radiographic evidence of acute cardiopulmonary disease.
== END 2024-12-04 14:43 | disposition home or self-care (01) ==
LOC: RAD 14:44
PROVIDERS: PCP Family Medicine; Visit Provider Nurse Practitioner Family
DX: I35.0 Nonrheumatic aortic (valve) stenosis (principal); J44.9 Chronic obstructive pulmonary disease, unspecified; I34.1 Nonrheumatic mitral (valve) prolapse; R00.1 Bradycardia, unspecified; R68.89 Other general symptoms and signs; Z87.891 Personal history of nicotine dependence
CPT/HCPCS: 71046; 99214

== ENCOUNTER 2024-12-07 07:23 | Outpatient (CLI) | payer MEDICARE, SELFPAY | END 2024-12-07 07:24 | disposition home or self-care (01) | LOC: RT 07:24 | PROVIDERS: PCP Family Medicine; Visit Provider Nurse Practitioner Family | DX: J44.9 Chronic obstructive pulmonary disease, unspecified (principal) | CPT/HCPCS: 94010; 94726; 94729 ==

== ENCOUNTER 2024-12-28 08:15 | Outpatient (CLI) | payer MEDICARE, SELFPAY ==
--- NOTE | 2024-12-28 08:20 | CTR_ITS ---
PROCEDURE INFORMATION: Exam: CT Chest Without Contrast; Diagnostic Exam date and time: 12/28/2024 8:53 AM Age: 59 years old Clinical indication: Shortness of breath; Mucus buildup x 2 months TECHNIQUE: Imaging protocol: Diagnostic computed tomography of the chest without contrast. Radiation optimization: All CT scans at this facility use at least one of these dose optimization techniques: automated exposure control; mA and/or kV adjustment per patient size (includes targeted exams where dose is matched to clinical indication); or iterative reconstruction. COMPARISON: CR XR chest 2V* [id number] 12/04/2024 3:04 PM RADIATION DOSE METRICS: Total DLP (mGy-cm): 433.1 FINDINGS: Trachea: Airways: Unremarkable. Lungs: No infiltrates or lobar consolidation. No suspiciuos pulmonary nodules or masses. Pleural spaces: No pleural effusions or pneumothorax. Heart: Heart size within normal limits. No pericardial effusions. Coronary arteries: Moderate atherosclerotic coronary artery calcifications. Lymph nodes: No significant mediastinal or hilar lymphadenopathy. Vasculature: Unremarkable. No aortic aneurysm. Liver: Hepatic steatosis. Bones/joints: Unremarkable. No acute fracture. Soft tissues: Unremarkable. CT/CT chest wo con [id number] IMPRESSION: 1. No acute findings in the chest. 2. No suspicious pulmonary masses or nodules. 3. Moderate atherosclerotic coronary artery calcifications. 4. Hepatic steatosis.
== END 2024-12-28 08:16 | disposition home or self-care (01) ==
LOC: RAD 08:17
PROVIDERS: PCP Family Medicine; Visit Provider Family Medicine
DX: R06.02 Shortness of breath (principal); I25.84 Coronary atherosclerosis due to calcified coronary lesion
CPT/HCPCS: 71250